=== PATIENT | female | born 1945 | race Caucasian/White ===

== ENCOUNTER 2019-08-16 08:10 | Day surgery (SDC) | payer MEDICARE, BC, SELFPAY ==
[2019-08-15 13:18] VITALS: BMI 45.0
[2019-08-16 08:33] VITALS: BP 183/99; PULSE 85; RESP 16; TEMP 36.4; O2SAT 95
[2019-08-16 08:42] LABS: Glucose Point of Care 142 mg/dL (70-110)
[2019-08-16] MEDS: sodium chloride 0.9% 1,000 ML 30 ML IV (08:44)
--- NOTE | 2019-08-16 08:50 | ANES.PREANE2 ---
Pre-Anesthetic Assessment Pre-Anesthetic Assessment: Height/Weight: Height 1.68 m Weight 126.552 kg Temp Pulse Resp BP Pulse Ox 97.5 F L 85 16 183/99 95 08/16/19 08:33 08/16/19 08:33 08/16/19 08:33 08/16/19 08:33 08/16/19 08:33 Proposed Procedure: Operation Date: 08/16/19 09:50 Proposed Procedures p Ventral Hernia Repair w/ poss Mesh(Not Applicable) - Amador Canas MD Last intake: Intake Last Liquid Date 08/16/19 Last Liquid Time 04:00 Last Solid Date 08/15/19 Last Solid Time 21:30 Social: Social History: Alcohol (occ) and No tobacco Exam: Pre-Anes Outpt Exam: alert, oriented x 3, clear to auscultation bilaterally and regular rate & rhythm Airway: Submandibular: WNL Cervical ROM: WNL MP: 2 Dentition: Other (good dentation) History/ROS: No significant history except as noted Pulmonary: Pulmonary: [facility] CV/HEM: CV/HEM: CAD (PTCA 2014) and HTN : : None reported Hepatic: Hepatic: None reported GI: GI: None reported Metabolic: Metabolic: DM, Morbid obesity and Thyroid Musc/skel: Musc/skel: OA/DJD Neuropsych: Neuropsych: None reported Anesthetic Plan: ASA status: 3 Anesthesia: Anesthesia Evaluation and General Risk of > 500 ml blood loss (7ml/kg in children): No Meds/Allergies Current Medications: Current Medications Generic Name Dose Route Start Last Admin Trade Name Freq PRN Reason Stop Dose Admin Sodium Chloride 1,000 mls @ 30 ml s/hr 08/16/19 08:00 08/16/19 08:44 Sodium Chloride 0.9% IV 08/17/19 07:59 30 mls/hr .Q24H SMITH Administration PFSH Anesthesia PFSH: Medical History CAD (coronary artery disease) Diabetes HTN (hypertension) Hypercholesteremia Myocardial infarct, old Obesity Osteoarthritis Surgical History Hx of cataract surgery Hx of dilation and curettage Hx of heart artery stent Hx of tonsillectomy Hx of total knee arthroplasty S/P PTCA (percutaneous transluminal coronary angioplasty) Family History Father CAD (coronary artery disease) Myocardial infarction Mother Diabetes Social History Smoking and tobacco status: never smoked Alcohol intake: current Alcohol intake frequency: holidays/special occasions only Data Anesthesia Other Labs: Laboratory Results - last 48 hr 08/16/19 08:37 POC Glucose 142 Cardiac Studies: No Data to Display
--- NOTE | 2019-08-16 09:35 | W.PM.OPSUD ---
Surgery/Procedure H&P Update DATE OF PROCEDURE: August 16, 2019 DATE H&P PERFORMED: 07/17/19 H&P UPDATE INFORMATION: I have examined patient prior to procedure and No changes to prior documentation PLANNED PROCEDURE: Operation Date: 08/16/19 09:50 Proposed Procedures p Ventral Hernia Repair w/ poss Mesh(Not Applicable) - Amador Canas MD
[2019-08-16] MEDS: clindamycin 900 MG/50 ML PREMIX 100 MG IV (09:40)
--- NOTE | 2019-08-16 09:41 | SUR.PREOP ---
[address] loving regarding unable to put TC hose on pt due to pt legs extremely large and swollen,oked with dr loving to hold off on TC hose
[2019-08-16 10:19] VITALS: BP 145/68; PULSE 83; RESP 16; TEMP 36.3; O2SAT 93
--- NOTE | 2019-08-16 10:19 | P.OP_ITS ---
Operative Report Date of procedure: August 16, 2019 Pre-op Diagnosis: Ventral hernia. Post-op diagnosis: same Procedure Done: Repair of ventral hernia. Pathology: none sent Surgeon: Amador Canas Anesthesia: General Estimated blood loss (mL): 5 Complications: None. Condition: stable Disposition: PACU Procedure: The patient was brought to the operating room and was placed in a supine position on the operating room table. General endotracheal anesthesia was induced. The abdomen was prepped and draped in a sterile fashion. A combination of 1% lidocaine with 1 to 100,000 parts epinephrine and 0.5% b upivacaine was used for local anesthesia throughout the procedure for postoperative anesthesia/pain control. A transverse incision was carried out over the hernia in the mid epigastrium. Cautery was used to divide the subcutaneous tissue and the hernia sac was identified and was freed on all sides down to the fascial defect which measured about 3 cm in diameter. The hernia sac was kept intact and was reduced. The patient seemed to have good tissue surrounding the defect and she had plenty of lax tissue allowing for a tension-free repair. For this reason, the fascia was brought back together at the defect transversely using multiple interrupted sutures of 0 Prolene in Lembert fashion. The repair was buttressed with some [id number] sutures of 0 Vicryl in between the Prolene sutures. The wound was irrigated with saline. The subcutaneous tissue was brought together with some interrupted sutures of 3-0 Vicryl and the skin was approximated using a running subcuticular suture of 3-0 Vicryl. Benzoin and Steri-Strips were placed over the incision and a sterile bandage followed. The patient was taken to the recovery area in stable condition postoperatively.
[2019-08-16 10:25] VITALS: BP 131/78; PULSE 80; RESP 19; O2SAT 96
[2019-08-16 10:30] VITALS: BP 133/77; PULSE 71; RESP 12; TEMP 36.5; O2SAT 95
[2019-08-16 10:40] VITALS: BP 129/76; PULSE 75; RESP 16; TEMP 36.6; O2SAT 94
[2019-08-16 10:55] VITALS: BP 131/74; PULSE 72; RESP 16; TEMP 36.6; O2SAT 95
--- NOTE | 2019-08-16 11:02 | SUR.PHASEII ---
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
== END 2019-08-16 12:45 | disposition home or self-care (01) ==
PROVIDERS: Family Provider Family Medicine; PCP Family Medicine; Visit Provider Surgery
PROC: 0WQF0ZZ Repair Abdominal Wall, Open Approach (ICD-10-PCS; CPT 49560; principal; 2019-08-16 09:50)
DX: K43.9 Ventral hernia without obstruction or gangrene (principal); F32.9 Major depressive disorder, single episode, unspecified; M19.90 Unspecified osteoarthritis, unspecified site; E11.9 Type 2 diabetes mellitus without complications; I10 Essential (primary) hypertension; I25.10 Atherosclerotic heart disease of native coronary artery without angina pectoris; I25.2 Old myocardial infarction; Z79.82 Long term (current) use of aspirin; Z79.84 Long term (current) use of oral hypoglycemic drugs; E66.01 Morbid (severe) obesity due to excess calories; Z68.42 Body mass index [BMI] 45.0-49.9, adult; E78.00 Pure hypercholesterolemia, unspecified
CPT/HCPCS: 49560; 12345; 36416; 82962; J0330; J2001; J2405; J2704; J3010; J3490; J7030

== ENCOUNTER 2019-12-01 12:40 | Inpatient (IN) | payer MEDICARE, BC, SELFPAY ==
[2019-12-01] VITALS (123 sets, daily range): BP systolic 62–205; BP diastolic 46–148; PULSE 48–141; RESP 12–24; TEMP 36.4–36.9; O2SAT 82–100; BMI 46.0
--- NOTE | 2019-12-01 12:53 | XRR_ITS ---
PROCEDURE INFORMATION: Exam: XR Chest, 1 View Exam date and time: 12/01/2019 12:55 PM Age: 74 years old Clinical indication: Dyspnea TECHNIQUE: Imaging protocol: XR of the chest Views: 1 view. COMPARISON: No relevant prior studies available. FINDINGS: Lungs: Fluffy bilateral lung opacities Pleural space: Unremarkable. No pleural effusion. No pneumothorax. Heart/Mediastinum: The heart is enlarged. The pulmonary venous structures are prominent and indistinct. There is interstitial prominence. Findings are consistent with congestive heart failure. Bones/joints: Unremarkable. XR/XR chest 1V portable [id number] IMPRESSION: 1. Findings as stated above are consistent with congestive heart failure. 2. Fluffy bilateral lung opacities are nonspecific and may represent pulmonary edema in this patient. Pneumonia cannot be excluded.
--- NOTE | 2019-12-01 12:54 | ECG_ITS ---
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 Measurements Intervals [place] Rate: 139 P: 39 NM: 181 QRS: 11 QRSD: 92 T: 68 QT: 341 QTc: 520 Interpretive Statements SINUS TACHYCARDIA WITH FREQUENT VENTRICULAR PREMATURE COMPLEXES INFERIOR MYOCARDIAL INFARCTION , OF INDETERMINATE AGE No previous ECG available for comparison Electronically Signed On 12-02-2019 9:17:06 CDT by Claudia Hudson M.D. [email or web address] [email or web address] Health Managementwayne [email or web address].[email or web address]/NU/[id number] f
--- NOTE | 2019-12-01 13:00 | USCV_ITS ---
Jose Carreno Age: 74 Gender: F : 1945 Exam Date: 12/01/2019 15:07 Ordering Phys: Edgar Gudino DO Technologist: Jennifer Saldana [place] [facility] [place]: Respiratory distress BP: 169 / 90 HR: 111 Rhythm: Sinus tachycardia Technical Quality: Very technically difficult study MEASUREMENTS (Male / Female) Normal Values 2D ECHO LV Diastolic Diameter PLAX 3.7 cm 4.2 - 5.9 / 3.9 - 5.3 cm LV Systolic Diameter PLAX 3.0 cm LV Chamber Size 5.6 cm IVS Diastolic Thickness 1.9 cm 0.6 - 1.0 / 0.6 - 0.9 cm IVS Systolic Thickness 1.7 cm LVPW Diastolic Thickness 1.3 cm 0.6 - 1.0 / 0.6 - 0.9 cm LVPW Systolic Thickness 1.8 cm RV Chamber Size 1.8 cm LVOT Diameter 1.9 cm LV Ejection Fraction 2D Teich 37.4 % LA Diameter 5.3 cm LA Width 2.7 cm LA Height 4.8 cm RA Width 2.0 cm RA Height 4.0 cm Aorta at Sinotubular Diameter 2.4 cm M-MODE LV Diastolic Diameter MM 6.2 cm 4.2 - 5.9 / 3.9 - 5.3 cm LV Systolic Diameter MM 5.0 cm LV Ejection Fraction MM Teich 37.0 % IVS Diastolic Thickness MM 1.3 cm 0.6 - 1.0 / 0.6 - 0.9 cm IVS Systolic Thickness MM 1.4 cm LVPW Diastolic Thickness MM 1.4 cm 0.6 - 1.0 / 0.6 - 0.9 cm LVPW Systolic Thickness MM 1.5 cm RV Diastolic Diameter MM 3.0 cm Aortic Annulus Diameter 3.2 cm LA Ao Ratio MM 1.7 DOPPLER AV Peak Velocity 115.0 cm/s LVOT Peak Velocity 99.0 cm/s AV Area Cont Eq vti 1.9 cm squared AV Area Cont Eq pk 2.4 cm squared MV Area PHT 5.4 cm squared Mitral E to A Ratio 0.9 MV E' Velocity 63.0 cm/s TV Peak E Velocity 92.0 cm/s Right Atrial Pressure 15.0 mmHg FINDINGS Left Ventricle Moderately dilated left ventricle. Severely decreased left ventricular systolic function.left ventricular ejection fraction is estimated at 25-30 %. Severely global hypokinesis. Although no diagnostic regional wall motion abnormality could be identified, this possibility cannot be completely excluded based on this study. Right Ventricle Right ventricle not well visualized. Probably normal right ventrciular size and low normal systolic function. Right Atrium Right atrium not well visualized. Left Atrium Mildly increased left atrial size. Mitral Valve Mildly thickened mitral valve. No mitral valve stenosis. Trace mitral valve regurgitation. Aortic Valve Aortic valve not well visualized. No aortic valve stenosis. Mild aortic valve regurgitation. Tricuspid Valve Tricuspid valve not well visualized. Pulmonic Valve Pulmonic valve not well visualized. Pericardium No pericardial effusion. Dilated inferior vena cava with no respiratory variations. Aorta Aorta not well visualized. CONCLUSIONS 1. This is a technically very difficult study. 2. Moderately dilated left ventricle. Severely decreased left ventricular systolic function.left ventricular ejection fraction is estimated at 25-30 %. Severely global hypokinesis. 3. Probably normal right ventrciular size and low normal systolic function. 4. Mild aortic valve regurgitation. 5. No prior similar studies to compare. Claudia Hudson MD (Electronically Signed) Final Date: 01 December 2019 17:32 S
[2019-12-01] MEDS: FUROsemide 10 mg/mL SDV 10mL 60 MG IVP (13:04)
[2019-12-01] MEDS: morphine 4 mg/mL SDV 1 mL IVP (13:05)
[2019-12-01 13:16] LABS: Basophils # 0.1 10^3/uL (0.0-0.1); Basophils % 0.9 %; Eosinophils # 0.5 10^3/uL (0.0-0.8); Eosinophils % 3.5 %; Hematocrit 44.1 % (37.0-47.0); Hemoglobin 13.1 g/dL (11.5-15.3); Lymphocytes # 4.5 10^3/uL (0.8-4.8); Lymphocytes % 32.4 %; Mean Corpuscular HGB Conc 29.7 g/dL (30.0-36.0); Mean Corpuscular Hemoglobin 24.4 pg (28.0-34.0); Mean Corpuscular Volume 82.1 fL (81-99); Mean Platelet Volume 12.6 fL (7.4-10.4); Monocytes # 0.7 10^3/uL (0.2-0.9); Monocytes % 5.2 %; Neutrophils # 7.97 10^3/uL (1.8-7.7); Neutrophils % 57.4 %; Nucleated Red Blood Cells % 0 %; Platelet Count 286 10^3/cmm (130-400); Red Blood Count 5.37 10^6/uL (4.1-5.3); Red Cell Distribution Width 16.2 % (12.1-15.1); White Blood Count 13.9 10^3/uL (4.0-10.0)
[2019-12-01] MEDS: nitroglycerin drip 50 MG/250 ML PREMIX IV (13:20)
--- NOTE | 2019-12-01 13:31 | ED_ITS ---
HPI - SOB/Dyspnea General: Chief Complaint: Shortness of Breath/Dyspnea Stated Complaint: SHORT OF BREATH Time Seen by Provider: 12/01/19 12:42 History of Present Illness: HPI Narrative: 74-year-old female presents to the emergency room in acute respiratory distress I was called to the bedside as the patient was having short runs of V. tach. On arrival evaluated patient she was in acute respiratory distress. Patient was given 150 mg of amiodarone and star vito on amiodarone drip. Very brief history from the patient she suddenly began this at 1030 this morning with progressive worsening difficulty breathing with chest congestion she is not had any fever study nausea vomiting or diarrhea. She is not had any GI blood loss. She denied any chest pain that she could recall. She not been around anyone who is known to be positive for COVID or suspected. Patient does have a history of diabetes mellitus and known history of coronary artery disease MD elicited complaint: shortness of breath Pertinent past history: congestive heart failure and other (Coronary artery disease) Onset (ago): hour(s) Timing: progressively worsening Severity: severe Exacerbating factors: lying flat, exertion and coughing Relieving factors: oxygen, rest and upright position Known history of: congestive heart failure and other (Coronary artery disease) Associated symptoms: Reports cough; Deny fever(s), hemoptysis, palpitations, syncope or vomiting Treatment prior to arrival: none Review of Systems Const: Denies: fever(s) ENMT: Denies: throat pain, nasal discharge or nasal congestion Card: Denies: palpitations or syncope Resp: Denies: hemoptysis GI: Denies: vomiting : Denies: difficulty voiding, dysuria, urinary frequency or urinary urgency [facility] ED PFSH: Medical History CAD (coronary artery disease) Diabetes HTN (hypertension) Hypercholesteremia Myocardial infarct, old Obesity Osteoarthritis Surgical History Hx of cataract surgery Hx of dilation and curettage Hx of heart artery stent Hx of tonsillectomy Hx of total knee arthroplasty S/P PTCA (percutaneous transluminal coronary angioplasty) Family History Father CAD (coronary artery disease) Myocardial infarction Mother Diabetes Social History Smoking and tobacco status: never smoked Alcohol intake: current Alcohol intake frequency: holidays/special occasions only Physical Exam Const: ORIENTATION/CONSCIOUSNESS: Yes awake HENMT: COMMON NORMALS: normocephalic, atraumatic and hearing grossly normal bilaterally HEAD & SCALP: normocephalic and atraumatic Eye: COMMON NORMALS: Equal, round and reactive pupils present, EOMs intact bilaterally, conjunctivae normal and no scleral icterus CONJUNCTIVA: Yes conjunctivae normal PUPIL: Yes Equal, round and reactive pupils present Resp: AUSCULTATION: rales, rhonchi and diminished lung sounds Cardio: RATE: tachycardic RHYTHM: abnormal rhythm (Short runs of V. tach) GI: COMMON NORMALS: Soft to palpation and No hepatosplenomegaly present AUSCULTATION: Yes normoactive bowel sounds PALPATION: Yes Soft to palpation, No Tenderness to palpation present (GI), No Guarding due to palpation present (GI) and Yes No hepatosplenomegaly present Extremity: OTHER: 1+ edema lower extremities Procedures Intubation Time out performed: Yes sedative: Etomidate Mg Given: 30 Mg Given: 90 ET Tube Size: 8 ET Tube Uncuffed: No Tube Secured Depth (cm): 23 Tube Secured Location: teeth Tube Placement Confirmation: visualized tube passing through cords, equal breath sounds bilaterally and no breath sounds over epigastrium Patient Tolerated Procedure: well Intubation Complications: none Additional Comments: Confirmed by x-ray as well Course Vital Signs: Vital signs: Vital Signs Temperature 97.5 F L 12/01/19 12:48 Pulse Rate 113 H 12/01/19 15:09 Respiratory Rate 18 12/01/19 15:09 Blood Pressure 169/90 12/01/19 15:09 Pulse Oximetry 97 12/01/19 15:09 MDM - SOB/Dyspnea MDM Narrative: Medical decision making narrative: Discussed with Dr. Marion will admit to the ICU she would like to the patient PCR tested even though the antigen test was negative will maintain code precautions. PCR testing has been ordered. Second blood gas showed improvement did make some adjustments to the ventilator. Postresuscitation patient was struggling with propofol we gave her some ketamine after that her blood pressure and heart rate decreased tolerated for a time and then gave her atropine she had very little improvement of her heart rate dopamine was started but this time the amiodarone and nitroglycerin at all been stopped as well as her propofol. Patient was given 2 half amps dose drinks of atropine which improved heart rate only minimal dopamine was started at 10 mics per kilogram patient had significant response was titrated back down to 3 was notable that the patient began having irritability and short little V. tach beats her amiodarone was restarted she is stable at this time Dr. hernández is in the department to see her. Lab Data: Labs: Lab Results 12/01/19 12/01/19 12/01/19 Range/Units 12:50 13:04 13:05 WBC 13.9 H (4.0-10.0) 10^3/ uL RBC 5.37 H (4.1-5.3) 10^6/u L Hgb 13.1 (11.5-15.3) g/dL Hct 44.1 (37.0-47.0) % MCV 82.1 (81-99) fL MCH 24.4 L (28.0-34.0) pg MCHC 29.7 L (30.0-36.0) g/dL RDW 16.2 H (12.1-15.1) % Plt Count 286 (130-400) 10^3/c mm MPV 12.6 H (7.4-10.4) fL Neut % (Auto) 57.4 % Lymph % (Auto) 32.4 % [place] % (Auto) 5.2 % Eos % (Auto) 3.5 % Baso % (Auto) 0.9 % Neut # (Auto) 7.97 H (1.8-7.7) 10^3/u L Lymph # (Auto) 4.5 (0.8-4.8) 10^3/u L [place] # (Auto) 0.7 (0.2-0.9) 10^3/u L Eos # (Auto) 0.5 (0.0-0.8) 10^3/u L Baso # (Auto) 0.1 (0.0-0.1) 10^3/u L Nucleated RBC % (a uto) 0 % Nucleated RBCs # 0.0 /100WBC Specimen Type Arterial Sample Site Radial, right ABG pH 7.19 L (7.35-7.45) ABG pCO2 60.0 H (35-45) mmHg ABG pO2 84.2 (80.0-100.0) mmH g ABG HCO3 22.8 (22-26) mmol/L ABG Base Excess -6.4 L (-2.0-2.0) mmol/ L Derrick Test Pos Hematocrit 43.3 (37-47) % O2 Delivery Device Nrb O2 Liters/Min 15.0 % FiO2 100.0 % Tidal Volume PEEP cmH20 Dance [employer] Hostess ID glc Blood Gas Notified Time Sodium (136-145) mmol/L Potassium (3.5-5.1) mmol/L Chloride (98-107) mmol/L Carbon Dioxide (22-29) mmol/L Anion Gap (5-19) BUN (8-23) mg/dL Creatinine (0.5-0.9) mg/dL GFR Calculation Glucose (65-115) mg/dL POC Glucose 257 (70-110) mg/dL Calculated Osmolal ity (285-295) mOsm/k g Calcium (8.5-10.5) mg/dL Total Bilirubin (0.15-1.2) mg/dL AST (0-32) U/L ALT (0-33) U/L Alkaline Phosphata se (35-105) IU/L Creatine Kinase (26-192) U/L Troponin T Baselin e (0-10) ng/L NT-Pro-B Natriuret Pep (0-125) pg/mL Total Protein (6.6-8.7) g/dL Albumin (3.5-5.2) g/dL Globulin (1.3-4.6) g/dL Influenza Type A A g (Negative) Influenza Type B A g (Negative) SARS-CoV-2 Ag (Rap id) (Negative) 12/01/19 12/01/19 12/01/19 Range/Units 13:05 13:05 13:47 WBC (4.0-10.0) 10^3/ uL RBC (4.1-5.3) 10^6/u L Hgb (11.5-15.3) g/dL Hct (37.0-47.0) % MCV (81-99) fL MCH (28.0-34.0) pg MCHC (30.0-36.0) g/dL RDW (12.1-15.1) % Plt Count (130-400) 10^3/c mm MPV (7.4-10.4) fL Neut % (Auto) % Lymph % (Auto) % [place] % (Auto) % Eos % (Auto) % Baso % (Auto) % Neut # (Auto) (1.8-7.7) 10^3/u L Lymph # (Auto) (0.8-4.8) 10^3/u L [place] # (Auto) (0.2-0.9) 10^3/u L Eos # (Auto) (0.0-0.8) 10^3/u L Baso # (Auto) (0.0-0.1) 10^3/u L Nucleated RBC % (a uto) % Nucleated RBCs # /100WBC Specimen Type Sample Site ABG pH (7.35-7.45) ABG pCO2 (35-45) mmHg ABG pO2 (80.0-100.0) mmH g ABG HCO3 (22-26) mmol/L ABG Base Excess (-2.0-2.0) mmol/ L Derrick Test Hematocrit (37-47) % O2 Delivery Device O2 Liters/Min % FiO2 % Tidal Volume PEEP cmH20 Dance Hall Hostess ID Blood Gas Notified Time Sodium 142 (136-145) mmol/L Potassium 5.0 (3.5-5.1) mmol/L Chloride 105 (98-107) mmol/L Carbon Dioxide 22 (22-29) mmol/L Anion Gap 20.0 H (5-19) BUN 21 (8-23) mg/dL Creatinine 1.4 H (0.5-0.9) mg/dL GFR Calculation Not Reportable Glucose 289 H (65-115) mg/dL POC Glucose (70-110) mg/dL Calculated Osmolal ity 301 H (285-295) mOsm/k g Calcium 9.5 (8.5-10.5) mg/dL Total Bilirubin 0.3 (0.15-1.2) mg/dL AST 41 H (0-32) U/L ALT 36 H (0-33) U/L Alkaline Phosphata se 99 (35-105) IU/L Creatine Kinase 94 (26-192) U/L Troponin T Baselin e 32 H (0-10) ng/L NT-Pro-B Natriuret Pep 1992 H (0-125) pg/mL Total Protein 6.9 (6.6-8.7) g/dL Albumin 4.2 (3.5-5.2) g/dL Globulin 2.7 (1.3-4.6) g/dL Influenza Type A A g (Negative) Influenza Type B A g (Negative) SARS-CoV-2 Ag (Rap id) Negative (Negative) 12/01/19 12/01/19 Range/Units 13:55 14:08 WBC (4.0-10.0) 10^3/ uL RBC (4.1-5.3) 10^6/u L Hgb (11.5-15.3) g/dL Hct (37.0-47.0) % MCV (81-99) fL MCH (28.0-34.0) pg MCHC (30.0-36.0) g/dL RDW (12.1-15.1) % Plt Count (130-400) 10^3/c mm MPV (7.4-10.4) fL Neut % (Auto) % Lymph % (Auto) % [place] % (Auto) % Eos % (Auto) % Baso % (Auto) % Neut # (Auto) (1.8-7.7) 10^3/u L Lymph # (Auto) (0.8-4.8) 10^3/u L [place] # (Auto) (0.2-0.9) 10^3/u L Eos # (Auto) (0.0-0.8) 10^3/u L Baso # (Auto) (0.0-0.1) 10^3/u L Nucleated RBC % (a uto) % Nucleated RBCs # /100WBC Specimen Type Arterial Sample Site Radial, left ABG pH 7.28 L (7.35-7.45) ABG pCO2 46.9 H (35-45) mmHg ABG pO2 246.0 H (80.0-100.0) mmH g ABG HCO3 22.2 (22-26) mmol/L ABG Base Excess -4.6 L (-2.0-2.0) mmol/ L Derrick Test Pos Hematocrit 39.6 (37-47) % O2 Delivery Device Vent O2 Liters/Min % FiO2 90.0 % Tidal Volume 0.54 PEEP 7.0 cmH20 Dance Hall Hostess ID glc Blood Gas Notified Time 1408 Sodium (136-145) mmol/L Potassium (3.5-5.1) mmol/L Chloride (98-107) mmol/L Carbon Dioxide (22-29) mmol/L Anion Gap (5-19) BUN (8-23) mg/dL Creatinine (0.5-0.9) mg/dL GFR Calculation Glucose (65-115) mg/dL POC Glucose (70-110) mg/dL Calculated Osmolal ity (285-295) mOsm/k g Calcium (8.5-10.5) mg/dL Total Bilirubin (0.15-1.2) mg/dL AST (0-32) U/L ALT (0-33) U/L Alkaline Phosphata se (35-105) IU/L Creatine Kinase (26-192) U/L Troponin T Baselin e (0-10) ng/L NT-Pro-B Natriuret Pep (0-125) pg/mL Total Protein (6.6-8.7) g/dL Albumin (3.5-5.2) g/dL Globulin (1.3-4.6) g/dL Influenza Type A A g Negative (Negative) Influenza Type B A g Negative (Negative) SARS-CoV-2 Ag (Rap id) (Negative) Critical Care Time Critical Care Time: Critical Care Time: Yes Total Critical Care Time: 90 Attestation: This case had a high probability of a clinically significant, sudden, or life threatening deterioration of this patient's condition which required my full and direct attention, intervention and personal management. Discharge Plan Discharge Admit Provider: Alice Marion Clinical Impression: Congestive heart failure, Ventricular tachycardia, Acute respiratory failure Condition: Stable Coding Level of Care Code ED Athletic Trainer for Krystal Humphries
[2019-12-01] MEDS: propofol 1,000 MG/100 ML INJ 7.8 MG IV (13:39)
[2019-12-01 13:41] LABS: Troponin(5th) Baseline 32 ng/L (0-10)
--- NOTE | 2019-12-01 13:42 | XRR_ITS ---
PROCEDURE INFORMATION: Exam: XR Chest, 1 View Exam date and time: 12/01/2019 1:50 PM Age: 74 years old Clinical indication: Device placement; Ett placement (vent status); Additional info: Post-intubation TECHNIQUE: Imaging protocol: XR of the chest Views: 1 view. COMPARISON: CR (CHEST, ) 12/01/2019 12:51 PM FINDINGS: Tubes, catheters and devices: ET tube tip is positioned 3.1 cm superior to the paulino. There is a G-tube in place with the distal tip not visualized. Lungs: Bilateral fluffy pulmonary opacities are similar to the prior study. Pleural space: Left costophrenic angle is not well seen and a small pleural effusion cannot be excluded. Heart/Mediastinum: The heart is enlarged. The pulmonary venous structures are prominent and indistinct. There is interstitial prominence. Findings are consistent with congestive heart failure. Bones/joints: Unremarkable. XR/XR chest 1V portable [id number] IMPRESSION: 1. ET tube tip is positioned 3.1 cm superior to the paulino. 2. Bilateral fluffy pulmonary opacities are similar to the prior study. Differential includes pulmonary edema and pneumonia. 3. There are findings consistent with CHF, similar to the prior study.
[2019-12-01 13:46] LABS: Alanine Aminotransferase 36 U/L (0-33); Albumin Level 4.2 g/dL (3.5-5.2); Alkaline Phosphatase 99 IU/L (35-105); Blood Urea Nitrogen 21 mg/dL (8-23); Calcium 9.5 mg/dL (8.5-10.5); Carbon Dioxide 22 mmol/L (22-29); Chloride 105 mmol/L (98-107); Creatine Phosphokinase 94 U/L (26-192); Globulin 2.7 g/dL (1.3-4.6); Glucose 289 mg/dL (65-115); NT Pro B Type Natriuretic Pept 1992 pg/mL (0-125); Osmolality Calculated 301 mOsm/kg (285-295); Sodium 142 mmol/L (136-145); Total Bilirubin 0.3 mg/dL (0.15-1.2); Total Protein 6.9 g/dL (6.6-8.7)
[2019-12-01 13:48] LABS: Aspartate Amino Transferase 41 U/L (0-32)
[2019-12-01 14:00] LABS: Arterial Blood Gas Hematocrit 43.3 % (37-47); Base Excess ABG -6.4 mmol/L (-2.0-2.0); Blood Gas Allen Test Pos; Blood Gas Operator Identificat glc; Blood Gas Sample Site Radial, right; Blood Gas Sample Type Arterial; HCO3 ABG 22.8 mmol/L (22-26); Oxygen Device NRB; PO2 ABG 84.2 mmHg (80.0-100.0)
[2019-12-01 14:07] LABS: ABG PCO2 46.9 mmHg (35-45); ABG PH Result 7.28 (7.35-7.45); Arterial Blood Gas Hematocrit 39.6 % (37-47); Base Excess ABG -4.6 mmol/L (-2.0-2.0); Blood Gas Allen Test Pos; Blood Gas Operator Identificat glc; Blood Gas Sample Site Radial, left; Blood Gas Sample Type Arterial; Blood Gas Tidal Volume 0.54; HCO3 ABG 22.2 mmol/L (22-26); Oxygen Device VENT
[2019-12-01 14:08] LABS: ABG PH Result 7.19 (7.35-7.45)
[2019-12-01 14:09] LABS: Blood Gas CCRB Time 1408
[2019-12-01] MEDS: succinylcholine 20 mg/mL SDV 10mL 100 MG IVP (14:21)
[2019-12-01 14:43] LABS: SARS Covid-2 Antigen Negative (Negative)
[2019-12-01] MEDS: DOPamine drip 400 MG/250 ML PREMIX 48.5 MG IV (14:50)
[2019-12-01] MEDS: atropine 0.1 mg/mL Syr 10 mL 1 MG IVP (14:50)
--- NOTE | 2019-12-01 14:54 | ECG_ITS ---
[facility] Test Date: 2019-12-01 Pat Name: Jose Carreno Department: Room: Gender: Female Business Support: : 1945 Requested By: Edgar Stinson Order Number: [id number] Liliana MD: Claudia Hudson M.D. Measurements Intervals [place] Rate: 57 P: 34 [place]: 196 QRS: 4 QRSD: 104 T: 96 QT: 451 QTc: 441 Interpretive Statements SINUS BRADYCARDIA POSSIBLE LEFT ATRIAL ENLARGEMENT [-0.1mV P WAVE IN V1/V2] INCOMPLETE RIGHT BUNDLE BRANCH BLOCK INFERIOR MYOCARDIAL INFARCTION , PROBABLY OLD No previous ECG available for comparison Electronically Signed On 12-02-2019 9:10:01 CDT by Claudia Hudson M.D. [id number]
[2019-12-01 15:01] LABS: Glucose Point of Care 257 mg/dL (70-110)
[2019-12-01 15:07] LABS: Influenza A by IFA Negative (Negative); Influenza B by IFA Negative (Negative)
--- NOTE | 2019-12-01 16:11 | PM.HP ---
Providers/Chief Complaint Admitting Physician: Alice Marion MD Primary Care Provider: Hiren Ferreira Jr, MD Chief Complaint: SHORT OF BREATH History of Present Illness Jose Carreno is a 74 year old female with a past medical history of CAD status post stenting 6 to 7 years ago in [place], unknown last EF, diabetes mellitus, hypertension, CHF with chronic lower extremity swelling who presented to the ER today in respiratory distress. All of the history is obtained by talking to her daughter as patient is unable to communicate. It appears this morning patient was walking around in her pool and cleaning it when she developed sudden onset shortness of breath. Patient was able to call her and complained of the same shortness of breath and then he ended concrete pouring supervisor the EMS. Patient was able to walk 30 feet to the EMS truck however her O2 sats at the time was noted to be 92% and she was somewhat tachypneic. Upon presentation to the ER she was noted to have elevated blood pressure so she was started on nitroglycerin infusion initially. EKG also showed intermittent V. fib for which amiodarone was given. She then developed sinus bradycardia. Atropine was administered. Quickly worsening respiratory distress patient was emergently intubated eventually. She became hypotensive and has since been started on dobutamine infusion. Baseline troponin is at 32. CPK baseline is not elevated. D-dimer remains pending at this time. COVID rapid antigen is negative. 1 of the patient's daughter was recently was having respiratory symptoms shortly after losing her xerlef-uw-cdu to COVID. However apparently patient has not been around the said daughter for the past month. She had virtually no symptoms of cough chest pain URI symptoms sore throat prior to onset of symptoms today. Review of Systems General: Reports: ROS unobtainable due to endotracheal tube and ROS unobtainable due to medical condition Medications/Allergies Home Medications Medication Instructions Recorded Confirmed Last Taken Type aspirin 325 mg tablet,delayed 325 mg PO DAILY tab 05/01/19 12/01/19 12/01/19 History release carvedilol 3.125 mg tablet 3.125 mg PO BID 05/01/19 12/01/19 12/01/19 History cholecalciferol (vitamin D3) 25 2,000 unit PO DAILY cap 05/01/19 12/01/19 12/01/19 History mcg (1,000 unit) capsule furosemide 40 mg tablet 40 mg PO BID 05/01/19 12/01/19 12/01/19 History levothyroxine 75 mcg tablet 75 mcg PO DAILY tab 05/01/19 12/01/19 12/01/19 History losartan 50 mg tablet 50 mg PO DAILY tab 05/01/19 12/01/19 12/01/19 History metformin 500 mg tablet 500 mg PO BID 05/01/19 12/01/19 12/01/19 History potassium chloride 20 mEq 10 meq PO BID 05/01/19 12/01/19 12/01/19 History tablet,extended release(part/cryst) acetaminophen [Tylenol Extra 500 mg PO Q6H PRN 08/15/19 12/01/19 08/15/19 History Strength] hydrocodone-acetaminophen 1 - 2 tab PO Q5H PRN #30 tab 08/16/19 12/01/19 Unknown Rx simvastatin 10 mg PO BEDTIME 12/01/19 12/01/19 12/01/19 History Allergies Allergy/AdvReac Type Severity Reaction Status Date / Time cephalexin Allergy Mild Unknown Verified 08/16/19 08:28 PFSH Acute PFSH: Medical History CAD (coronary artery disease) Diabetes HTN (hypertension) Hypercholesteremia Myocardial infarct, old Obesity Osteoarthritis Surgical History Hx of cataract surgery Hx of dilation and curettage Hx of heart artery stent Hx of tonsillectomy Hx of total knee arthroplasty S/P PTCA (percutaneous transluminal coronary angioplasty) Family History Father CAD (coronary artery disease) Myocardial infarction Mother Diabetes Social History Smoking and tobacco status: never smoked Alcohol intake: current Alcohol intake frequency: holidays/special occasions only Vitals/I&O/Wt Last Vital Signs Temp 97.5 F L 12/01/19 12:48 Pulse 69 12/01/19 15:55 Resp 14 12/01/19 15:55 BP 124/77 12/01/19 15:55 Pulse Ox 98 12/01/19 16:00 12/01/19 12/01/19 12/01/19 06:59 14:59 22:59 Intake Total 0.09 / 0.09 133.042 / 133.132 Balance 0.09 / 0.09 133.042 / 133.132 Weight last 48 hrs Weight 129.274 kg Physical Exam Narrative: EXAM NARRATIVE: GEN: Intubated sedated HEENT: ETT In place, minimal secretions CVS: S1S2 N RS: CTA B/L Abd: Soft, nt/nd , bs+ TOWEL DISTRIBUTOR: intubated, sedated EXT: B/L LE edema+ Urinary Catheter Management^: Arteaga: Cath Placed During This Visit: yes Urinary Catheter Date of Insertion: 12/01/19 Urinary Catheter Time of Insertion: 14:37 Data : 12/01/19 13:05 12/01/19 13:05 Micro: Microbiology 12/01/19 15:30 Blood Culture - Preliminary Blood SPECIMEN COLLECTED 12/01/19 15:25 Blood Culture - Preliminary Blood SPECIMEN COLLECTED 12/01/19 13:30 Gram Stain - Final Sputum - Endotracheal Tube Aspirate A&P Assessment and plan (1) Acute respiratory failure: Status: Acute Qualifiers: Respiratory failure complication: hypoxia Qualified Code(s): J96.01 - Acute respiratory failure with hypoxia (2) Ventricular tachycardia: Status: Acute (3) Congestive heart failure: Status: Acute Qualifiers: Heart failure type: combined systolic and diastolic Heart failure chronicity: acute on chronic Qualified Code(s): I50.43 - Acute on chronic combined systolic (congestive) and diastolic (congestive) heart failure (4) Cardiogenic shock: Status: Acute Additional A&P Information Admit to ICU in viw of shock, appears to be cardiogenic per history as above - EKG with Vfib/Vtach continue amiodarone infusion -Stop dopamine, start levophed instead - full does a/c with lovenox for possible MA vs PE - alternate differential incl PE, acute decompensated HF -D dimer, LE duplex, CTA chest - Stat echo ordered, pensing - Lasix 80mg iv q12h for CHF, Chandler vang , I/O - Dr. Hudson consulted from cardiology -COVID PCR , though negative Ag due to strong suspicion - Zosyn emprically while undergoing w/up , per history less likely to be pneumonia, will await CT images - Intubated in the ER, settings per RT for ventilator, OG tube - Fentanyl, propofol for sedation Full code DVT ppx: on full dose lovenox Attestations Medical Necessity Statement*: >2midnight for cardiogenic shock, acute respiratory failure ~45min spent in CCM time Critical Care Time: Critical Care Time (min): 60 Coding Level of Care Code Acute Kindergartners Helper for [facility] Fwd Diagnoses Acute respiratory failure J96.01 Respiratory failure complication: hypoxia Ventricular tachycardia I47.2 Congestive heart failure I50.43 Heart failure type: combined systolic and diastolic Heart failure chronicity: acute on chronic Cardiogenic shock R57.0
--- NOTE | 2019-12-01 16:39 | CTR_ITS ---
PROCEDURE INFORMATION: Exam: CT Angiography Chest With Contrast Exam date and time: 12/01/2019 5:24 PM Age: 74 years old Clinical indication: Shortness of breath; Patient HX: Sudden onset resp distress et-og and central lines in place; Additional info: Evaluate pe TECHNIQUE: Imaging protocol: Computed tomographic angiography of the chest with intravenous contrast. 3D rendering: MIP and/or 3D reconstructed images were created by the technologist. Radiation optimization: All CT scans at this facility use at least one of these dose optimization techniques: automated exposure control; mA and/or kV adjustment per patient size (includes targeted exams where dose is matched to clinical indication); or iterative reconstruction. Contrast material: VISI 320; Contrast volume: 95 ml; Contrast route: INTRAVENOUS (IV); COMPARISON: CR (CHEST, ) 12/01/2019 1:57 PM RADIATION DOSE METRICS: Total DLP (mGy-cm): 588.96 FINDINGS: Tubes, catheters and devices: There is a ET tube in place with the tip terminates superior to the paulino. A G-tube is in place with the distal tip in the stomach. Pulmonary arteries: Normal. No pulmonary emboli. Aorta: Unremarkable. No aortic aneurysm. No aortic dissection. Lungs: There are bilateral pulmonary ground-glass opacities. Pleural space: There are bilateral pleural effusions with underlying compressive atelectasis or infiltrate. Heart: Cardiomegaly. There is trace pericardial fluid. Lymph nodes: Unremarkable. No enlarged lymph nodes. Gallbladder and bile ducts: Cholelithiasis. Bones/joints: There are degenerative changes in the spine. Soft tissues: Unremarkable. CT/CT angio chest PE protcl [id number] IMPRESSION: 1. Cardiomegaly with bilateral pleural effusions consistent with congestive heart failure. 2. Bilateral pulmonary ground-glass opacities likely represent pulmonary edema in this patient. Underlying pneumonia cannot be excluded. 3. No evidence for pulmonary embolus. Radiation Dose CTDIVOL = (mGy): DLP = 588.96 (mGy-cm)
[2019-12-01] MEDS: enoxaparin 100 mg/mL Syringe SUBCUT (16:57)
[2019-12-01] MEDS: piperacillin-tazobactam 3.375 GM in sodium chloride 0.9% (plus) 50 ML IV (16:58)
[2019-12-01] MEDS: enoxaparin 30 mg/0.3 mL Syringe SUBCUT (16:58)
[2019-12-01 18:01] LABS: ABG PCO2 42.1 mmHg (35-45); ABG PH Result 7.36 (7.35-7.45); Arterial Blood Gas Hematocrit 43.4 % (37-47); Base Excess ABG -1.7 mmol/L (-2.0-2.0); Blood Gas Allen Test Pos; Blood Gas Operator Identificat glc; Blood Gas Sample Site Radial, right; Blood Gas Sample Type Arterial; Blood Gas Tidal Volume 0.56; HCO3 ABG 23.8 mmol/L (22-26); Oxygen Device VENT
[2019-12-01] MEDS: haloperidol inj 5 mg/mL INJ 1 mL IVP (18:19)
[2019-12-01] MEDS: FUROsemide 10 mg/mL SDV 10mL 80 MG IVP (18:19)
[2019-12-01] MEDS: metoclopramide 5 mg/mL SDV 2 mL 10 MG IVP (18:20)
--- NOTE | 2019-12-01 18:54 | ECG_ITS ---
[facility] Test Date: 2019-12-01 Pat Name: Jose Carreno Department: Room: ICU02 Gender: Female Fly Finisher: : 1945 Requested By: Edgar Stinson Order Number: [id number] Liliana MD: Claudia Hudson M.D. Measurements Intervals [place] Rate: 70 P: 30 VT: 194 QRS: 6 QRSD: 117 T: 94 QT: 425 QTc: 460 Interpretive Statements SINUS RHYTHM WITH OCCASIONAL VENTRICULAR PREMATURE COMPLEXES POSSIBLE RIGHT VENTRICULAR CONDUCTION DELAY [RSR (QR) IN V1/V2] Compared to ECG 12/01/2019 14:25:46 Ventricular premature complex(es) now present Sinus bradycardia no longer present Incomplete right bundle-branch block no longer present Myocardial infarct finding no longer present Electronically Signed On 12-02-2019 9:08:46 CDT by Claudia Hudson M.D. [id number]
--- NOTE | 2019-12-01 19:06 | PC.NURSE ---
patient report received from JOSE Douglas and care transferred to JOSE Avila
[2019-12-01 19:29] LABS: Fibrinogen 570 mg/dL (174-498)
[2019-12-01 19:37] LABS: Lactic Sepsis W/Reflex 3.1 mmol/L (0.5-2.2)
--- NOTE | 2019-12-01 19:37 | XRR_ITS ---
PROCEDURE INFORMATION: Exam: XR Chest, 1 View Exam date and time: 12/01/2019 7:38 PM Age: 74 years old Clinical indication: Device placement; Other: Central line placement TECHNIQUE: Imaging protocol: XR of the chest Views: 1 view. COMPARISON: CR (CHEST, ) 12/01/2019 1:57 PM FINDINGS: Tubes, catheters and devices: ET tube distal tip is positioned 2.3 cm superior to the paulino. Right jugular approach central venous catheter tip is positioned in the right atrium. Lungs: There are hazy perihilar and bibasilar opacities less prominent when compared to the prior study. Pleural space: Unremarkable. No pleural effusion. No pneumothorax. Heart/Mediastinum: Unremarkable. No cardiomegaly. Vasculature: There is calcified plaque in the aortic knob. Bones/joints: Unremarkable. Soft tissues: Heart size not optimally evaluated with a single AP view of the chest. Other findings: There is a G-tube in place. XR/XR chest 1V [id number] IMPRESSION: 1. Central venous catheter tip is positioned in the right atrium. 2. ET tube tip is positioned 2.3 cm superior to the paulino. 3. Interval improvement of the perihilar and bibasilar hazy pulmonary opacities.
[2019-12-01 19:38] LABS: D Dimer 5.41 ug/mIFEU (0-0.59)
--- NOTE | 2019-12-01 20:16 | PC.NURSE ---
patient taken to CT by nurse, resp hvac field service technician, and harvesting contractor
[2019-12-01 20:57] LABS: Reflex Lactate Order REFLEX LACTIC ORDERD
[2019-12-01 21:46] LABS: Lactic Acid level (Lactate) 1.8 mmol/L (0.5-2.2)
--- NOTE | 2019-12-01 21:47 | PC.NURSE ---
call to family Spoke with daughterKatherine. Update on patient status. all questions answered at this time. vital signs WNL. patient resting comfortably. Per daughterKatherine that patients ranjith Barillas is in the [place] and may contact ICU for further updates. Patient password set up with daughter. Last 4 of OV number. Password: [id number]. will continue to monitor patient.
[2019-12-01 21:51] LABS: Troponin 5 2HR 82.23 ng/L (0-10)
[2019-12-01 22:07] LABS: Procalcitonin 0.13 ng/mL (0-0.5)
[2019-12-01 22:19] LABS: C Reactive Protein 12.3 mg/L (0.0-4.9); Ferritin 84 ng/mL (15-150)
--- NOTE | 2019-12-01 22:19 | PC.NURSE ---
Call to physician Rosalind started at 2205 due to patient vital sings. BP:65/48 heart rate noted to be in the high 40s and low 50s. notified, no new orders at this time. will continue to monitor.
[2019-12-01 22:25] LABS: Troponin(5th) Baseline 81 ng/L (0-10)
[2019-12-01 22:25] LABS: Troponin 5 2HR Delta 1.23 ABS# (0-10)
[2019-12-01 22:46] LABS: Lactate Dehydrogenase 418 U/L (135-214)
--- NOTE | 2019-12-01 23:07 | PC.NURSE ---
call from [facility] Spoke with Cynthia Dietz about patient status/prognosis/life expectencies/family support. informed caller that patient is critical but stable at this time. Caller is from [facility] getting information so that Son, Eran can come home to see his mother from the tab ticketbroker. Cynthia was able to give nurse patient name//passcode. phone number to call back [facility] for medical staff: [phone] case #:[id number]
[2019-12-02] VITALS (176 sets, daily range): BP systolic 105–139; BP diastolic 52–91; PULSE 43–94; RESP 8–25; TEMP 36.9–37.6; O2SAT 92–100
[2019-12-02] MEDS: piperacillin-tazobactam 3.375 GM in sodium chloride 0.9% (plus) 50 ML IV ×3 (00:43→16:51)
[2019-12-02 01:09] LABS: ABG PCO2 37.6 mmHg (35-45); ABG PH Result 7.44 (7.35-7.45); Alveolar-Arterial Oxygen Gradi 17.9 mmHg (5-10); Arterial Blood Gas Hematocrit 38.7 % (37-47); Base Excess ABG 1.6 mmol/L (-2.0-2.0); Blood Gas Sample Site Brachial, right; Blood Gas Sample Type Arterial; Carboxyhemoglobin 0.9 %THgb (0.4-20.1); HCO3 ABG 25.6 mmol/L (22-26); HGB O2 Sat 96.9 % (95-100); Ionized Calcium Level - ABG 1.2 mmol/L (1.1-1.4); Methemoglobin 0.9 % (0.4-1.5); Oxygen Device VENT; Oxygen Saturation ABG 98.6; Potassium Level - ABG 4.1 mmol/L (3.5-5.0); Total Hemoglobin 12.6 g/dL (12-16)
[2019-12-02 01:33] LABS: Troponin 5 6HR 79.26 ng/L (0-10)
[2019-12-02 01:39] LABS: Troponin 5 6HR Delta -1.74 ng/L (0-12)
[2019-12-02 03:59] LABS: Basophils # 0.1 10^3/uL (0.0-0.1); Basophils % 0.3 %; Eosinophils % 0.1 %; Hematocrit 37.8 % (37.0-47.0); Hemoglobin 11.5 g/dL (11.5-15.3); Lymphocytes # 1.7 10^3/uL (0.8-4.8); Lymphocytes % 10.9 %; Mean Corpuscular HGB Conc 30.4 g/dL (30.0-36.0); Mean Corpuscular Volume 78.8 fL (81-99); Mean Platelet Volume 12.9 fL (7.4-10.4); Monocytes # 1.2 10^3/uL (0.2-0.9); Monocytes % 7.6 %; Neutrophils % 80.7 %; Nucleated Red Blood Cells % 0 %; Platelet Count 259 10^3/cmm (130-400); Red Cell Distribution Width 16.2 % (12.1-15.1); White Blood Count 15.6 10^3/uL (4.0-10.0)
[2019-12-02 04:16] LABS: Alanine Aminotransferase 32 U/L (0-33); Albumin Level 3.8 g/dL (3.5-5.2); Alkaline Phosphatase 80 IU/L (35-105); Anion Gap 13.3 (5-19); Aspartate Amino Transferase 37 U/L (0-32); Blood Urea Nitrogen 26 mg/dL (8-23); Calcium 9.4 mg/dL (8.5-10.5); Carbon Dioxide 27 mmol/L (22-29); Chloride 103 mmol/L (98-107); Globulin 2.4 g/dL (1.3-4.6); Glucose 231 mg/dL (65-115); Osmolality Calculated 292 mOsm/kg (285-295); Potassium 4.3 mmol/L (3.5-5.1); Sodium 139 mmol/L (136-145); Total Bilirubin 0.6 mg/dL (0.15-1.2); Total Protein 6.2 g/dL (6.6-8.7)
[2019-12-02] MEDS: FUROsemide 10 mg/mL SDV 10mL 80 MG IVP ×2 (04:43→16:52)
[2019-12-02] MEDS: enoxaparin 100 mg/mL Syringe SUBCUT ×2 (04:43→16:52)
[2019-12-02] MEDS: enoxaparin 30 mg/0.3 mL Syringe SUBCUT ×2 (04:43→16:52)
[2019-12-02 06:56] LABS: Urine Appearance Clear (CLEAR); Urine Color Yellow (Yellow)
[2019-12-02 06:57] LABS: Add Urine Culture? Yes; Bacteria Urine 4+; Bilirubin Urine Neg (NEGATIVE); Blood Urine Neg (Negative); Glucose Urine UA Norm (Normal); Ketones Urine Negative (Negative); Leukocyte Esterase Urine Negative (Negative); Nitrate Urine Positive (Negative); Protein Urine Neg (Negative); Specific Gravity, Urine 1.025 (1.005-1.030); Urobilinogen Urine Norm (Negative); pH Urine 5 (5-7)
[2019-12-02] MEDS: pantoprazole 40 mg SDV IVP (09:55)
--- NOTE | 2019-12-02 10:25 | P.PN_ITS ---
Subjective Subjective: Interval history: Patient improved this morning. She is currently on fentanyl 50 mics and is able to participate in conversation by gestures. Easily nods yes or no. Comprehends. T-max 99.7 Fahrenheit this morning. Denies being in any discomfort at this present time. Levophed was turned off this morning at around 7 AM. White count at 15.6. Creatinine slightly worsened at 1.7 today. Denies any complaints of chest pain prior to onset of symptoms. Troponins peaked at around 80. Delta signs have remained insignificant. She has diuresed 3.4 L. Net -2.7 L at this point. Weight is 124 kg from 129 kg started yesterday. D-dimer elevated at 5. CTA chest negative for PE. Shows bilateral pulmonary edema and mild effusions. COVID PCR pending. Lactate trended down from 3-1.8. UA with positive nitrates and WBCs 10-15. Amiodarone currently running at 0.5. Medications: Reviewed: Yes Vitals/I&O/Wt Last Vital Signs Temp 99.7 F H 12/02/19 08:00 Pulse 80 12/02/19 08:00 Resp 14 12/02/19 09:47 BP 111/52 12/02/19 08:00 Pulse Ox 92 12/02/19 08:00 12/01/19 12/02/19 12/02/19 22:59 06:59 14:59 Intake Total 470.467 / 470.557 245.937 / 716.494 Output Total 3050 / 3050 400 / 3450 Balance -2579.533 / -2579.443 -154.063 / -2733.506 Weight last 48 hrs Weight 124.284 kg Weight 129.274 kg Physical Exam Narrative: EXAM NARRATIVE: GEN: Awake, alert and oriented, no acute distress HEENT: ETT, NGT in place CVS: S1S2 N RS: CTA B/L Abd: Soft, nt/nd , bs+ WINDOWS DESKTOP ENGINEER: no focal neuro deficits Urinary Catheter Management^: Arteaga: Cath Placed During This Visit: yes Reason for Continuing Indwelling Catheter: Accurate Measurement of Urinary Output in Critically Ill Patients Urinary Catheter Date of Insertion: 12/01/19 Urinary Catheter Time of Insertion: 14:37 Data : 12/02/19 03:18 12/02/19 03:18 Micro: Microbiology 12/01/19 15:30 Blood Culture - Preliminary Blood SPECIMEN COLLECTED 12/01/19 15:25 Blood Culture - Preliminary Blood SPECIMEN COLLECTED 12/01/19 13:30 Gram Stain - Final Sputum - Endotracheal Tube Aspirate A&P Assessment and plan (1) Ventricular tachycardia: Status: Acute (2) Acute respiratory failure: Status: Acute Qualifiers: Respiratory failure complication: hypoxia Qualified Code(s): J96.01 - Acute respiratory failure with hypoxia (3) Congestive heart failure: Status: Acute Qualifiers: Heart failure chronicity: acute on chronic Heart failure type: combined systolic and diastolic Qualified Code(s): I50.43 - Acute on chronic combined systolic (congestive) and diastolic (congestive) heart failure (4) Cardiogenic shock: Status: Acute (5) UTI (urinary tract infection): Status: Acute (6) Leukocytosis: Status: Acute (7) SIRS (systemic inflammatory response syndrome): Status: Acute Additional A&P Information Continued ICU admission #Acute respiratory failure Appears to be related to acute on chronic CHF exacerbation. Echocardiogram shows Moderately dilated left ventricle. Severely decreased left ventricular systolic function.left ventricular ejection fraction is estimated at 25-30 %. Severely global hypokinesis. Unknown past baseline. Patient has unknown diagnosis of CAD and CHF for which she is on Lasix 40 mg p.o. twice daily, however does not know her last known ejection fraction. We will try to obtain records from [place]. Initial troponin in the 30s, then trended up to 80s, however since then serial delta's have remained unremarkable. Denies any complains of chest pain prior to onset of symptoms. CTA of the chest without any evidence of PE. Shows bilateral congestive changes and pleural effusions. No gross consolidation visible on CAT scan. Procalcitonin is negative. Unlikely to be pneumonia precipitating the current symptoms. Denies any antecedent symptoms such as fever cough. Currently meeting Sirs criteria and a positive UA (unknown if drawn from bag or after straight cath), cannot excuse sepsis, on empiric zosyn ABG, CXR now, planned extubation later today # EKG with Vfib/Vtach - continue amiodarone infusion , currently at 0.5 , HR 80s, resume home dose of carvedilol - Awaiting cardiology recommendatiosn on further titration/continuation of amiodarone - Continue Lasix 80mg iv q12h for CHF, Chandler vang , I/O - Dr. Hudson consulted from cardiology -[employer] PCR pending, Ag negative # Diabetes mellitus: Start mild insulin sliding scale, check Hba1c and lipid panel Full code DVT ppx: on full dose lovenox Attestations Medical Necessity Statement*: Acute respiratory failure Coding Level of Care Code Acute Psychiatric Social Worker Supervisor for [facility] Fwd Diagnoses Ventricular tachycardia I47.2 Acute respiratory failure J96.01 Respiratory failure complication: hypoxia Congestive heart failure I50.43 Heart failure chronicity: acute on chronic Heart failure type: combined systolic and diastolic Cardiogenic shock R57.0 UTI (urinary tract infection) N39.0 Leukocytosis D72.829 SIRS (systemic inflammatory response syndrome) R65.10
[2019-12-02 10:31] LABS: ABG PH Result 7.45 (7.35-7.45); Blood Gas Allen Test Pos; Blood Gas Operator Identificat BD; Blood Gas Sample Site Brachial, right; Blood Gas Sample Type Arterial
[2019-12-02 10:33] LABS: ABG PCO2 41.6 mmHg (35-45); Arterial Blood Gas Hematocrit 36.1 % (37-47); Carboxyhemoglobin 0.9 %THgb (0.4-20.1); HCO3 ABG 28.5 mmol/L (22-26); HGB O2 Sat 96.4 % (95-100); Methemoglobin 0.8 % (0.4-1.5); PO2 ABG 92.4 mmHg (80.0-100.0); Total Hemoglobin 11.8 g/dL (12-16)
[2019-12-02 10:53] LABS: Thyroid Stimulating Hormone 2.55 uIU/mL (0.27-4.20)
--- NOTE | 2019-12-02 10:55 | ECG_ITS ---
[facility] Test Date: 2019-12-02 Pat Name: Jose Carreno Department: Room: ICU02 Gender: Female Director Of Health Care Marketing: : 1945 Requested By: Alice Marion Order Number: [id number] Liliana MD: Claudia Hudson M.D. Measurements Intervals [place] Rate: 84 P: 66 FL: 192 QRS: -13 QRSD: 126 T: 140 QT: 464 QTc: 551 Interpretive Statements SINUS RHYTHM WITH FREQUENT VENTRICULAR PREMATURE COMPLEXES MODERATE T-WAVE ABNORMALITY, CONSIDER ANTEROLATERAL ISCHEMIA [-0.1+ mV T WAVE IN V3-V6] Compared to ECG 12/01/2019 18:33:51 T-wave abnormality now present Possible ischemia now present Electronically Signed On 12-03-2019 16:43:19 CDT by Claudia Hudson M.D. [id number]
--- NOTE | 2019-12-02 10:57 | XRR_ITS ---
PROCEDURE INFORMATION: Exam: XR Chest, 1 View Exam date and time: 12/02/2019 12:00 PM Age: 74 years old Clinical indication: Other: Evaluate for infiltrates; Additional info: Evalute for infiltrates TECHNIQUE: Imaging protocol: XR of the chest Views: 1 view. COMPARISON: CR (CHEST, ) 12/01/2019 8:37 PM FINDINGS: Tubes, catheters and devices: ET tube terminates above the level of the paulino. Right central venous catheter tip terminates right atrium. NG tube courses below the diaphragm with nonvisualization of the tip. Lungs: Slightly increased bilateral airspace opacities predominantly in the perihilar lower lobe distribution. Pleural space: Small pleural effusions. Heart/Mediastinum: Cardiomegaly. Bones/joints: No acute fracture. XR/XR chest 1V portable [id number] IMPRESSION: Slightly increased bilateral airspace opacities which can be seen with pulmonary edema or pneumonia in the appropriate clinical context.
[2019-12-02 11:30] LABS: Estmated Average Glucose 166; Hemoglobin A1C 7.4 % (4.0-6.0)
[2019-12-02] MEDS: FUROsemide 10 mg/mL SDV 4mL 40 MG IVP (11:32)
[2019-12-02 11:39] LABS: Chol HDL Ratio 3.24 mg/dL (0.0-4.40); Cholesterol 159 mg/dL (0-200); HDL Cholesterol 49 mg/dL (60-100); LDL Cholesterol Calculated 90 mg/dL (50-129); LDL HDL Ratio 1.84 RATIO (0.00-3.22); Triglycerides 102 mg/dL (0-150)
[2019-12-02 12:01] LABS: Glucose Point of Care 163 mg/dL (70-110)
--- NOTE | 2019-12-02 12:59 | PC.RESP ---
extubated pt extubated at 1220 and placed on 3lpm nc. tolerated well
--- NOTE | 2019-12-02 14:03 | P.CONIM_ITS ---
Providers/Reason For Consult Consulting Physican/Specialty*: Dr. Hudson, cardiology Reason for Consult*: Shortness of breath, hypoxic respiratory failure and elevated troponin Attending Physician: Alice Marion MD Primary Care Provider: Hiren Ferreira Jr, MD History of Present Illness History of Present Illness Jose Carreno is a 74 year old female with past medical history of coronary artery disease status post angioplasty and bare-metal stent placement on 29 December 2013 to proximal circumflex and obtuse marginal artery, hypertension, diabetes mellitus type 2, congestive heart failure with unknown ejection fraction. She presented to the ER yesterday with respiratory distress. As per patient, her daughter Katherine and on reviewing the chart it seems like, patient developed worsening shortness of breath that started acutely yesterday morning with some sensation of heart racing. Patient describes chronic lower extremity swelling but denies having any acute worsening of the swelling or medication or dietary noncompliance. She denies having any URI or UTI-like symptoms. She does complain of feeling tired and fatigued for past 2-3 weeks. She usually follows up with Dr. Ferreira and saw him last few months back. She had a similar episode though no not as bad approx 3 months ago. Her oxygen saturation was 92% when she was brought in via EMS and on arrival to the ER she was found to be hypertensive with blood pressure at 205/148 mmHg. It seems like she was briefly started on nitroglycerin drip. Because of frequent runs of nonsustained ventricular tachycardia. EKG showed sinus tachycardia with frequent PVCs and triplets. She did develop hypotension and was given amiodarone 150 mg IV followed by amiodarone drip. Her ABG showed pH of 7.19, PCO2 60 and PO2 of 84 on 15 L of oxygen via nonrebreather. Chest x-ray showed bilateral fluffy infiltrates with prominent pulmonary venous structure consistent with congestive heart failure. Pneumonia could not be excluded. She received Lasix 60 mg IV x1. She ended up being intubated and thereafter was on propofol and ketamine leading to significant hypotension and bradycardia to the point of requiring atropine administration. She was started on dopamine drip. Her initial troponin was at 80. She was started on Lasix 80 mg IV every 12 and was admitted to ICU as a PUI for COVID-19. COVID-19 PCR are still pending. Rapid antigen test was negative. Overnight she has diuresed 3.4 L and is -2.7 L. She was weaned off of dopamine and placed on Levophed drip briefly overnight that was turned off this morning. T-max was 99.7 Fahrenheit her creatinine was 1.5 that has increased to 1.7 today. She was successfully extubated this morning. Review of Systems Const: Denies: fever(s) or chills ENMT: Denies: throat pain, nasal discharge or nasal congestion Card: Denies: palpitations or syncope Resp: Denies: hemoptysis GI: Denies: vomiting : Denies: difficulty voiding, dysuria, urinary frequency or urinary urgency Musc: Reports: extremity swelling (chronic) Neuro: Denies: weakness in extremities Psych: Denies: anxiety or depression Erik/Lymph: Denies: petechiae or purpura Meds/Allergies Home Medications and Allergies Home Medications Medication Instructions Recorded Confirmed Last Taken Type aspirin 325 mg tablet,delayed 325 mg PO DAILY tab 05/01/19 12/01/19 12/01/19 History release carvedilol 3.125 mg tablet 3.125 mg PO BID 05/01/19 12/01/19 12/01/19 History cholecalciferol (vitamin D3) 25 2,000 unit PO DAILY cap 05/01/19 12/01/19 12/01/19 History mcg (1,000 unit) capsule furosemide 40 mg tablet 40 mg PO BID 05/01/19 12/01/19 12/01/19 History levothyroxine 75 mcg tablet 75 mcg PO DAILY tab 05/01/19 12/01/19 12/01/19 History losartan 50 mg tablet 50 mg PO DAILY tab 05/01/19 12/01/19 12/01/19 History metformin 500 mg tablet 500 mg PO BID 05/01/19 12/01/19 12/01/19 History potassium chloride 20 mEq 10 meq PO BID 05/01/19 12/01/19 12/01/19 History tablet,extended release(part/cryst) acetaminophen [Tylenol Extra 500 mg PO Q6H PRN 08/15/19 12/01/19 08/15/19 History Strength] hydrocodone-acetaminophen 1 - 2 tab PO Q5H PRN #30 tab 08/16/19 12/01/19 Unknown Rx simvastatin 10 mg PO BEDTIME 12/01/19 12/01/19 12/01/19 History Allergies Allergy/AdvReac Type Severity Reaction Status Date / Time cephalexin Allergy Mild Unknown Verified 08/16/19 08:28 Current Medications Current Medications Generic Name Dose Route Start Last Admin Trade Name Freq PRN Reason Stop Dose Admin Enoxaparin Sodium 100 mg 12/01/19 17:00 12/02/19 04:43 Lovenox SUBCUT 100 mg Q12H SMITH Administration Enoxaparin Sodium 30 mg 12/01/19 17:00 12/02/19 04:43 Lovenox SUBCUT 30 mg Q12H SMITH Administration Furosemide 80 mg 12/01/19 16:45 12/02/19 04:43 Lasix IVP 80 mg Q12H SMITH Administration Dopamine HCl/Dextrose 400 mg in 250 mls @ 24.239 mls/hr 12/01/19 14:45 12/01/19 21:25 Intropin Drip IV 0 mcg/kg/min CONT SMITH 0 mls/hr Titration Protocol 5 MCG/KG/MIN Piperacillin Sod/Tazobactam 50 mls @ 12.5 mls/hr 12/01/19 17:00 12/02/19 09:55 Sod 3.375 gm/ Sodium Chloride IV 12.5 mls/hr Q8H SMITH Administration Protocol Fentanyl 1,000 mcg/ Sodium 100 mls @ 0 mls/hr 12/01/19 16:15 12/02/19 06:52 Chloride IV 50 mcg/hr .Q0M SMITH 5 mls/hr Titration Protocol Per Protocol Norepinephrine Bitartrate 4 mg 254 mls @ 0 mls/hr 12/01/19 16:15 12/02/19 06:52 / Dextrose IV 0 mls/hr .Q0M SMITH 0 mls/hr Titration Protocol Per Protocol Amiodarone HCl 900 mg/ 518 mls @ 0 mls/hr 12/01/19 16:45 12/02/19 11:40 Dextrose/ IV Miscellaneous IV 0.5 mg/min Supplies .Q0M SMITH 17.3 mls/hr Administration Protocol Per Protocol Insulin Aspart 0 unit 12/02/19 12:00 12/02/19 11:59 Novolog SUBCUT 2 unit WM&BEDTIME SMITH Administration Protocol Pantoprazole Sodium 40 mg 12/02/19 09:00 12/02/19 09:55 Protonix IVP 40 mg DAILY SMITH Administration PFSH Acute PFSH: Medical History CAD (coronary artery disease) Diabetes HTN (hypertension) Hypercholesteremia Myocardial infarct, old Obesity Osteoarthritis Surgical History Hx of cataract surgery Hx of dilation and curettage Hx of heart artery stent Hx of tonsillectomy Hx of total knee arthroplasty S/P PTCA (percutaneous transluminal coronary angioplasty) Family History Father CAD (coronary artery disease) Myocardial infarction Mother Diabetes Social History Smoking and tobacco status: never smoked Alcohol intake: current Alcohol intake frequency: holidays/special occasions only Vitals/I&O/Wt Last Vital Signs Temp 99.1 F 12/02/19 12:00 Pulse 84 12/02/19 12:15 Resp 8 L 12/02/19 12:00 BP 132/83 12/02/19 12:00 Pulse Ox 98 12/02/19 12:00 12/01/19 12/02/19 12/02/19 22:59 06:59 14:59 Intake Total 470.467 / 470.557 245.937 / 716.494 Output Total 3050 / 3050 400 / 3450 Balance -2579.533 / -2579.443 -154.063 / -2733.506 Weight last 48 hrs Weight 274 lb Weight 285 lb Physical Exam Narrative: EXAM NARRATIVE: GENERAL: obese woman lying in bed in no acute distress HEENT: Pupils equal round reactive to light. No pallor or icterus. NECK: central trachea, JVD not appreciated, short thick neck. CARDIOVASCULAR SYSTEM: S1-S2 regular. No S3 or S4 present. No murmur rubs or gallops. RESPIRATORY SYSTEM: Chest clear to auscultation anteriorly, decreased breath sounds at bases ABDOMEN: Soft, obese, nontender and nondistended. Normal bowel sounds present. EXTREMITIES: No cyanosis or clubbing. 2+ edema. SUPERVISOR COSTUMING: Patient is alert oriented ?3. No focal neurological deficits. Urinary Catheter Management^: [place]: Cath Placed During This Visit: yes Reason for Continuing Indwelling Catheter: Accurate Measurement of Urinary Output in Critically Ill Patients Urinary Catheter Date of Insertion: 12/01/19 Urinary Catheter Time of Insertion: 14:37 Data Labs: Other Labs: Hb A1c 7.4, AST 37, ALT 32, LDH 418, baseline troponin T of 81, troponin T 120 minutes of 82 and 6-hour troponin T of 79. NT proBNP of 1992, CRP 12.3. TSH 2.55 and procalcitonin 0.13. Total cholesterol 159, LDL 890 HDL 49 and triglyceride 102. Micro: Micro: Microbiology 12/01/19 13:30 Gram Stain - Final Sputum - Endotrac heal Tube Aspirate Sputum Culture - P reliminary 12/01/19 15:30 Blood Culture - Pr eliminary Blood SPECIMEN [facility] TC 12/01/19 15:25 Blood Culture - Pr eliminary Blood SPECIMEN [facility] TC Other Data: Attestation for Other Data: I personally reviewed and interpreted the following: Other data: Chest CTA 01 December 2019 IMPRESSION: 1. Cardiomegaly with bilateral pleural effusions consistent with congestive heart failure. 2. Bilateral pulmonary ground-glass opacities likely represent pulmonary edema in this patient. Underlying pneumonia cannot be excluded. 3. No evidence for pulmonary embolus. TTE (12/01/19) CONCLUSIONS 1. This is a technically very difficult study. 2. Moderately dilated left ventricle. Severely decreased left ventricular systolic function.left ventricular ejection fraction is estimated at 25-30 %. Severely global hypokinesis. 3. Probably normal right ventrciular size and low normal systolic function. 4. Mild aortic valve regurgitation. 5. No prior similar studies to compare. CXR (12/02/19) IMPRESSION: Slightly increased bilateral airspace opacities which can be seen with pulmonary edema or pneumonia in the appropriate clinical context. EKG this morning showed sinus rhythm with frequent PVCs. Moderate T wave abnormality consider anterolateral ischemia. A&P Assessment and plan (1) Acute respiratory failure: Acute hypoxic hypercapnic respiratory failure in setting of pulmonary edema -Patient has been successfully extubated this morning. -There was initially concern for pulmonary embolism that has since been ruled out. Status: Acute Qualifiers: Respiratory failure complication: hypoxia Qualified Code(s): J96.01 - Acute respiratory failure with hypoxia (2) Pulmonary edema: Flash pulmonary edema; Unclear etiology. -Decompensated CHF leading to ischemia and runs of ventricular arrhythmia is a possibility. - This may possibly have contributed to flash pulmonary edema. -improved with diuresis. Status: Acute Qualifiers: Chronicity: acute Qualified Code(s): J81.0 - Acute pulmonary edema (3) Ventricular tachycardia: Frequent PVCs and runs of nonsustained ventricular tachycardia -She is currently on amiodarone drip that I will continue for now. -Once her blood pressure improves I will start her on low-dose metoprolol succinate and try to wean her off amiodarone drip. -Keep potassium more than 4 and magnesium more than 2. Status: Acute (4) Congestive heart failure: Acute on chronic congestive heart failure; possibly there is a drop in LV systolic function however the baseline is not known. -No regional wall motion abnormality on technically difficult transthoracic echo from this visit. -Etiology of decompensation could be underlying infection with UTI and possible pulmonary source (?aspiration). -Once patient is more euvolemic and renal function improves, will consider coronary angiogram. -Continue Lasix 80 mg IV every 12 hr for today, patient is responding well to diuretics. Status: Acute Qualifiers: Heart failure chronicity: acute on chronic Heart failure type: combined systolic and diastolic Qualified Code(s): I50.43 - Acute on chronic combined systolic (congestive) and diastolic (congestive) heart failure (5) Non-ST elevation VA (NSTEMI): Type II in setting of pulmonary edema, hypoxia. -On aspirin and statin. Status: Acute Additional A&P Information UTI-on abx per primary team Possible PNA- on Abx per primary team Transaminitis Acute kidney injury Acute respiratory acidosis: Resolved history of coronary artery disease Hypothyroidism Obesity Hypertension Hyperlipidemia Diabetes mellitus type 2 Thank you for allowing me to participate in patient's care please feel free to call with questions or concerns. 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
[2019-12-02 16:41] LABS: Glucose Point of Care 128 mg/dL (70-110)
[2019-12-02 18:42] LABS: Coronavirus Lab Test PTC SEE REPORT
[2019-12-02 21:12] LABS: Glucose Point of Care 157 mg/dL (70-110)
[2019-12-02] MEDS: atorvastatin 40 mg Tablet 10 MG PO (21:14)
[2019-12-03] VITALS (83 sets, daily range): BP systolic 91–149; BP diastolic 10–93; PULSE 64–89; RESP 10–24; TEMP 36.2–37.3; O2SAT 92–100
[2019-12-03] MEDS: piperacillin-tazobactam 3.375 GM in sodium chloride 0.9% (plus) 50 ML IV ×3 (01:21→17:13)
[2019-12-03] MEDS: lanolin oint 7 gm 1 APPLIC TOPICAL (01:38)
[2019-12-03 03:44] LABS: Basophils # 0.1 10^3/uL (0.0-0.1); Basophils % 0.7 %; Eosinophils # 0.3 10^3/uL (0.0-0.8); Eosinophils % 3.4 %; Hematocrit 34.9 % (37.0-47.0); Hemoglobin 10.7 g/dL (11.5-15.3); Lymphocytes # 2.3 10^3/uL (0.8-4.8); Lymphocytes % 25.1 %; Mean Corpuscular HGB Conc 30.7 g/dL (30.0-36.0); Mean Corpuscular Hemoglobin 24.7 pg (28.0-34.0); Mean Corpuscular Volume 80.4 fL (81-99); Monocytes # 1.1 10^3/uL (0.2-0.9); Monocytes % 12.2 %; Neutrophils # 5.38 10^3/uL (1.8-7.7); Neutrophils % 58.3 %; Nucleated Red Blood Cells % 0 %; Platelet Count 154 10^3/cmm (130-400); Red Blood Count 4.34 10^6/uL (4.1-5.3); Red Cell Distribution Width 16.2 % (12.1-15.1); White Blood Count 9.2 10^3/uL (4.0-10.0)
[2019-12-03 04:05] LABS: Alanine Aminotransferase 22 U/L (0-33); Albumin Level 3.5 g/dL (3.5-5.2); Alkaline Phosphatase 73 IU/L (35-105); Anion Gap 9.1 (5-19); Aspartate Amino Transferase 26 U/L (0-32); Blood Urea Nitrogen 21 mg/dL (8-23); Carbon Dioxide 33 mmol/L (22-29); Chloride 102 mmol/L (98-107); Globulin 2.5 g/dL (1.3-4.6); Glucose 120 mg/dL (65-115); Osmolality Calculated 290 mOsm/kg (285-295); Potassium 3.1 mmol/L (3.5-5.1); Sodium 141 mmol/L (136-145); Total Bilirubin 0.6 mg/dL (0.15-1.2)
[2019-12-03] MEDS: FUROsemide 10 mg/mL SDV 10mL 80 MG IVP (04:53)
[2019-12-03] MEDS: enoxaparin 100 mg/mL Syringe SUBCUT ×2 (04:53→17:18)
[2019-12-03] MEDS: potassium chloride premix 40 MEQ/100 ML PREMIX 25 MEQ IV (04:53)
[2019-12-03] MEDS: enoxaparin 30 mg/0.3 mL Syringe SUBCUT ×2 (04:53→17:20)
--- NOTE | 2019-12-03 05:33 | PC.NURSE ---
Addendum entered by Erin Hardy RN 12/03/19 06:26: Witnessed waste with Shari Marvin RN. Original Note: Fentanyl waste JOSE Doherty wasted 115ml of Fentanyl. witnessed by JOSE Ray.
[2019-12-03 07:46] LABS: Glucose Point of Care 146 mg/dL (70-110)
[2019-12-03 07:48] LABS: Oxygen Device VENT
--- NOTE | 2019-12-03 08:16 | P.PN_ITS ---
Subjective Subjective: Interval history: Reports today she is feeling better. Reports breathing is more comfortable. Says she is not normally on oxygen at home. Denies having sleep apnea. Has had a sleep study done perhaps about 3 years ago and says it did not show sleep apnea. She says she has a little bit of cough, this is nonproductive. She says she has no difficulties or cough associated with food or drink. Vitals/I&O/Wt Last Vital Signs Temp 98.7 F 12/03/19 04:00 Pulse 81 12/03/19 06:26 Resp 12 12/03/19 06:05 BP 138/81 12/03/19 06:05 Pulse Ox 98 12/03/19 06:26 12/02/19 12/03/19 12/03/19 22:59 06:59 14:59 Intake Total 658.877 / 708.877 20 / 728.877 50 / 50 Output Total 2650 / 2650 450 / 3100 Balance -1991.123 / -1941.123 -430 / -2371.123 50 / 50 Weight last 48 hrs Weight 122.924 kg Weight 124.284 kg Weight 129.274 kg Physical Exam Const: COMMON NORMALS: no acute distress and patient oriented x3 HENMT: COMMON NORMALS: oropharynx normal Neck/C-Spine: COMMON NORMALS: no JVD OTHER: R IJ CVC appears clean Resp: COMMON NORMALS: normal respiratory effort AUSCULTATION: diminished lung sounds (minimally) OTHER: No adventitious sounds Cardio: COMMON NORMALS: no JVD, regular rhythm, S1 normal heart sound present, S2 normal heart sound present and No murmurs present (Cardio) RHYTHM: regular rhythm HEART SOUNDS: S1 normal heart sound present and S2 normal heart sound present GI: COMMON NORMALS: Normal to inspection, nondistended, normoactive bowel sounds present, Soft to palpation and non-tender PALPATION: Yes Soft to palpation Extremity: COMMON NORMALS: no joint enlargement GENERAL: Yes edema (trace pitting edema, nonpitting edema) Neuro: COMMON NORMALS: patient oriented x3 and moves all extremities Skin: COMMON NORMALS: no rashes or lesions noted GENERAL SKIN EXAM: no rashes or lesions noted Urinary Catheter Management^: [place]teaga: Cath Placed During This Visit: yes Reason for Continuing Indwelling Catheter: Accurate Measurement of Urinary Output in Critically Ill Patients Urinary Catheter Date of Insertion: 12/01/19 Urinary Catheter Time of Insertion: 14:37 Data : 12/03/19 03:14 12/03/19 03:14 Micro: Microbiology 12/01/19 14:30 Urine Culture - Preliminary Urine,Clean Catch Gram Negative Rods 12/02/19 00:13 Bacterial Antigens - Final Urine,Voided 12/02/19 00:13 Legionella Urinary Antigen - Final Urine Catheterized 12/01/19 15:30 Blood Culture - Preliminary Blood NEGATIVE TO DATE 12/01/19 15:25 Blood Culture - Preliminary Blood NEGATIVE TO DATE 12/01/19 13:30 Gram Stain - Final Sputum - Endotracheal Tube Aspirate Sputum Culture - Preliminary A&P Assessment and plan (1) Ventricular tachycardia: Few PVCs noted on telemetry last night. No ventricular tachycardia noted. At this time no further bradycardia. Appreciate cardiology recommendations. Amiodarone has been discontinued. Switched over to metoprolol. Continue telemetry monitoring. Potassium was replaced. Check magnesium. Status: Acute (2) Acute respiratory failure: Secondary to acute on chronic systolic congestive heart failure. Not normally on oxygen at home. Does take 40 mg twice a day Lasix. Denies any chest pain or pressure. Has occasional cough, nonproductive, not related to food or drink. No PE seen on CTA. Lower extremity Dopplers pending. Currently is doing well on 2 L nasal cannula. Is diuresing well, is -2.3 L over the past 24 hours. Renal function appears to be permitting diuresis so far. Creatinine currently improved down to 1.4. Currently she is doing well with clear liquid diet, will advance to cardiac regular consistency diet. She denies any issues with aspiration in the past. Discussed with her concerns regarding congestive heart failure. Discussed also concerns that previously pneumonia cannot be excluded. This appears to be less likely, with resolution of leukocytosis. She remains afebrile. Rapid flu testing, COVID-19 testing, and urinary antigens all negative. Sputum and blood cultures are negative. For now continue Zosyn. If continues to do well may de-escalate antibiotics, depending also on results of urinary culture. May be able to leave the ICU if continues to do well. Right IJ CVC will need to be removed. Status: Acute Qualifiers: Respiratory failure complication: hypoxia Qualified Code(s): J96.01 - Acute respiratory failure with hypoxia (3) Congestive heart failure: As above. Status: Acute Qualifiers: Heart failure chronicity: acute on chronic Heart failure type: combined systolic and diastolic Qualified Code(s): I50.43 - Acute on chronic combined systolic (congestive) and diastolic (congestive) heart failure (4) Cardiogenic shock: Resolved. Status: Acute (5) UTI (urinary tract infection): 20-30,000 gram-negative rods growing in urine. Discussed with her. She denies any dysuria. At home does report some frequent urination, although is also taking Lasix. For now continue Zosyn. Follow-up ID and sensitivity. Status: Acute (6) Leukocytosis: Resolved. Status: Acute (7) SIRS (systemic inflammatory response syndrome): Resolved. Status: Acute Additional A&P Information Diabetes mellitus: Start mild insulin sliding scale, Hba1c 7.4. Continue statin. Consistent carb diet. Attestations Medical Necessity Statement*: Continue admission for assessment management of acute respiratory failure with hypoxia, acute congestive heart failure, with underlying cardiomyopathy, premature ventricular contractions. 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
[2019-12-03] MEDS: pantoprazole 40 mg SDV IVP (08:41)
[2019-12-03] MEDS: aspirin 325 mg EC Tablet PO (08:44)
[2019-12-03] MEDS: metoprolol succinate ER (24 HR) 25 mg Tablet 12.5 MG PO ×2 (08:44→18:10)
[2019-12-03] MEDS: levothyroxine 150 mcg Tablet 75 MCG PO (08:45)
[2019-12-03 09:04] LABS: Magnesium 1.9 mg/dL (1.7-2.3)
--- NOTE | 2019-12-03 09:25 | PC.NURSE ---
Patient has started on a new medication, metoprolol. I educated patient on risk of orthostatic hypotension. Advised to dangle legs before getting up, and to use her call light when needing to get up.
--- NOTE | 2019-12-03 09:53 | PC.CHAP ---
Pastoral Care Encounter/Spiritual Assessment Type of Contact [] Declined phlebotomist supervisor/instructor visit [] Patient/Family/Request visit [] Outpatient visit [] Follow-up visit [] Physician referral [] Code/Alert [x] Routine visit [] Staff referral [] Actively dying [] Patient sleeping [] Family support [] [] Out of room [] Palliative care [] [] Receiving care in room [] Pre-surgical visit [] Trauma [] Long length of stay [] ICU visit [] Other: Relational/Emotional Strength [] Patient feels connected with others/family/visitors/staff [] Distress [] Loneliness/isolation [] Abandonment Spirituality of Patient [] Person of Jennifer [] Attends Pentecostalism of their Jennifer [] Believes in Prayer [] Reads Bible or Pentecostal materials [] There are Spiritual issues to be addressed Professor Of Management Interventions [x] Prayer [x] Active listening [x] Non-anxious presence [x] Spiritual/emotional support [] Crisis/trauma care [] Spiritual counseling [] Bereavement support [] Provided bereavement packet [] Provided Bible/devotional materials [] Provided toy/stuffed animal, coloring book to patient or family member [] Provided Communion [] Anointing/[facility] [] Salvation [x] Completed spiritual assessment [] Other: Impact on Illness or Injury [] Angry [] Fearful [] Anxious [] Often cries [] Exhaustion [] Unable to work [] Unable to attend temple [] Unable to walk/stand [] Unable to read [] Unable to drive [] Unable to eat/drink [] Unable to sleep [] Unable to be with family [] Patient intubated [] Other: Summary Patient feeling so much better. Breathing improving Time spent with patient 10 min
--- NOTE | 2019-12-03 10:24 | PC.NURSE ---
Provided patient toothbrush, toothpaste and mouthwash. Independent with oral care.
[2019-12-03 11:42] LABS: Glucose Point of Care 169 mg/dL (70-110)
--- NOTE | 2019-12-03 11:55 | PM.PN ---
Subjective Subjective: Interval history: She is doing well. denies any complaints. Amiodarone gtt was stopped. Frequent PVC's noted on telemetry. Medications: Reviewed: Yes Medication Review Details: Current Medications Aspirin (Aspirin Ec) 325 mg PO DAILY [facility] Last Admin: 12/03/19 08:44 Dose: 325 mg Documented by: Atorvastatin Calcium (Lipitor) 20 mg PO BEDTIME [facility] Dextrose (D50w) 25 ml IVP ONCE PRN; Protocol PRN Reason: hypoglycemia protocol Dextrose (D50w) 50 ml IVP PRN PRN; Protocol PRN Reason: hypoglycemia protocol Enoxaparin Sodium (Lovenox) 100 mg SUBCUT Q12H [facility] Last Admin: 12/03/19 04:53 Dose: 100 mg Documented by: Enoxaparin Sodium (Lovenox) 30 mg SUBCUT Q12H [facility] Last Admin: 12/03/19 04:53 Dose: 30 mg Documented by: Furosemide (Lasix) 80 mg IVP Q12H [facility] Last Admin: 12/03/19 04:53 Dose: 80 mg Documented by: Glucagon (Glucagen) 1 mg IM ONCE PRN; Protocol PRN Reason: Adult Acute Hypoglycemia Prot. Piperacillin Sod/Tazobactam (Sod 3.375 gm/ Sodium Chloride) 50 mls @ 12.5 mls/hr IV Q8H [facility]; Protocol Last Infusion: 12/03/19 13:49 Dose: Infused Documented by: Fentanyl 1,000 mcg/ Sodium (Chloride) 100 mls @ 0 mls/hr IV .Q0M [facility]; Protocol Last Titration: 12/02/19 06:52 Dose: 50 mcg/hr, 5 mls/hr Documented by: Propofol (Diprivan) 1,000 mg in 100 mls @ 0 mls/hr IV .Q0M [facility]; Protocol Norepinephrine Bitartrate 4 mg (/ Dextrose) 254 mls @ 0 mls/hr IV .Q0M [facility]; Protocol Last Titration: 12/02/19 06:52 Dose: 0 mls/hr, 0 mls/hr Documented by: Amiodarone HCl 900 mg/Dextrose/ IV Miscellaneous Supplies 518 mls @ 0 mls/hr IV .Q0M SM[facility]; Protocol Last Titration: 12/02/19 22:42 Dose: 0 mg/min, 0 mls/hr Documented by: Dextrose (D5w) 500 mls @ 100 mls/hr IV ONCE PRN; Protocol PRN Reason: Adult Acute Hypoglycemia Prot Insulin Aspart (Novolog) 0 unit SUBCUT WM&BEDTIME [facility]; Protocol Last Admin: 12/03/19 11:45 Dose: 2 unit Documented by: Lanolin (Lanolin Oint) 1 applic TOPICAL PRN PRN PRN Reason: DRYNESS Last Admin: 12/03/19 01:38 Dose: 1 applic Documented by: Levothyroxine Sodium (Synthroid) 75 mcg PO DAILY [facility] Last Admin: 12/03/19 08:45 Dose: 75 mcg Documented by: Metoprolol Succinate (Toprol Xl) 12.5 mg PO BID [facility] Last Admin: 12/03/19 08:44 Dose: 12.5 mg Documented by: Ondansetron HCl (Zofran) 4 mg IVP Q6H PRN PRN Reason: NAUSEA AND VOMITING Pantoprazole Sodium (Protonix) 40 mg IVP DAILY [facility] Last Admin: 12/03/19 08:41 Dose: 40 mg Documented by: Vitals/I&O/Wt Last Vital Signs Temp 98.2 F 12/03/19 10:00 Pulse 77 12/03/19 10:00 Resp 17 12/03/19 10:00 BP 91/69 12/03/19 10:00 Pulse Ox 98 12/03/19 10:00 12/02/19 12/03/19 12/03/19 22:59 06:59 14:59 Intake Total 658.877 / 708.877 20 / 728.877 510 / 510 Output Total 2650 / 2650 450 / 3100 150 / 150 Balance -1991.123 / -1941.123 -430 / -2371.123 360 / 360 Weight last 48 hrs Weight 271 lb Weight 274 lb Weight 285 lb Physical Exam Narrative: EXAM NARRATIVE: GENERAL: obese woman lying in bed in no acute distress HEENT: Pupils equal round reactive to light. No pallor or icterus. NECK: central trachea, JVD not appreciated, short thick neck. CARDIOVASCULAR SYSTEM: S1-S2, irregular. No S3 or S4 present. No murmur rubs or gallops. RESPIRATORY SYSTEM: Chest clear to auscultation anteriorly, decreased breath sounds at bases ABDOMEN: Soft, obese, nontender and nondistended. Normal bowel sounds present. EXTREMITIES: No cyanosis or clubbing. 1+ edema (improved). LOT ATTENDANT: Patient is alert oriented ?3. No focal neurological deficits. Urinary Catheter Management^: Arteaga: Cath Placed During This Visit: yes Reason for Continuing Indwelling Catheter: Accurate Measurement of Urinary Output in Critically Ill Patients Urinary Catheter Date of Insertion: 12/01/19 Urinary Catheter Time of Insertion: 14:37 Data : 12/03/19 03:14 12/03/19 03:14 Micro: Microbiology 12/01/19 13:30 Gram Stain - Final Sputum - Endotracheal Tube Aspirate Sputum Culture - Final 12/01/19 14:30 Urine Culture - Preliminary Urine,Clean Catch Gram Negative Rods 12/02/19 00:13 Bacterial Antigens - Final Urine,Voided 12/02/19 00:13 Legionella Urinary Antigen - Final Urine Catheterized 12/01/19 15:30 Blood Culture - Preliminary Blood NEGATIVE TO DATE 12/01/19 15:25 Blood Culture - Preliminary Blood NEGATIVE TO DATE A&P Assessment and plan (1) Acute respiratory failure: Acute hypoxic hypercapnic respiratory failure in setting of pulmonary edema -Patient has been successfully extubated this morning. -There was initially concern for pulmonary embolism that has since been ruled out. Status: Acute Qualifiers: Respiratory failure complication: hypoxia Qualified Code(s): J96.01 - Acute respiratory failure with hypoxia (2) Pulmonary edema: Flash pulmonary edema; Unclear etiology. -Decompensated CHF leading to ischemia and runs of ventricular arrhythmia is a possibility. - This may possibly have contributed to flash pulmonary edema. -improved with diuresis. Status: Acute Qualifiers: Chronicity: acute Qualified Code(s): J81.0 - Acute pulmonary edema (3) Ventricular tachycardia: Frequent PVCs and runs of nonsustained ventricular tachycardia -She is currently on amiodarone drip that I will continue for now. -Once her blood pressure improves I will start her on low-dose metoprolol succinate and try to wean her off amiodarone drip. -Keep potassium more than 4 and magnesium more than 2. Status: Acute (4) Congestive heart failure: Acute on chronic congestive heart failure; possibly there is a drop in LV systolic function however the baseline is not known. -No regional wall motion abnormality on technically difficult transthoracic echo from this visit. -Etiology of decompensation could be underlying infection with UTI and possible pulmonary source (?aspiration). -Once patient is more euvolemic and renal function improves, will consider coronary angiogram. -will hold lasix this afternoon and possibly switch to PO tomorrow. Status: Acute Qualifiers: Heart failure chronicity: acute on chronic Heart failure type: combined systolic and diastolic Qualified Code(s): I50.43 - Acute on chronic combined systolic (congestive) and diastolic (congestive) heart failure (5) Non-ST elevation VA (NSTEMI): Type II in setting of pulmonary edema, hypoxia. -On aspirin and statin. Status: Acute Additional A&P Information UTI-on abx per primary team Possible PNA- on Abx per primary team Transaminitis Acute kidney injury Hypotension: 2/2 medications and post intubation; resolved Acute respiratory acidosis: Resolved history of coronary artery disease Hypothyroidism Obesity Hypertension Hyperlipidemia Diabetes mellitus type 2 Thank you for allowing me to participate in patient's care please feel free to call with questions or concerns. Attestations Medical Necessity Statement*: As per primary team. Coding Level of Care Code Acute Air Export Operations Agent for [facility] Diagnoses Acute respiratory failure J96.01 Respiratory failure complication: hypoxia Pulmonary edema J81.0 Chronicity: acute Ventricular tachycardia I47.2 Congestive heart failure I50.43 Heart failure chronicity: acute on chronic Heart failure type: combined systolic and diastolic Non-ST elevation VA (NSTEMI) I21.4
--- NOTE | 2019-12-03 12:55 | PC.NURSE ---
Per patients request, i assisted patient up to the side of the bed, sitting with legs dangling. THis is the first time since admission the patient has sat up this way and was recently prescribed metoprolol and has an increased dose of lasix compared to her at home prescription. I remained with patient for about 10 minutes to observe for signs of dizziness. Also educated patient about possible dizziness.
--- NOTE | 2019-12-03 13:41 | PC.NURSE ---
after patient was done using the commode, I changed the bed and provided a new gown.
[2019-12-03] MEDS: magnesium sulfate premix 2 GM/50 ML PIGGYBACK IV (13:45)
--- NOTE | 2019-12-03 15:32 | PC.NURSE ---
Observed a decrease in urine output, approximately 10 ml an hour for the past 2 hours, down from approximately 60 ml an hour this morning. I alerted Dr Levy. He advised to do a bladder scan and flush the catheter if bladder volume is 200 mL plus, and alert him if there is no increase in the next few hours. I did a bladder scan, volume is approximately 85. Will continue to track output and report back to Dr Levy.
--- NOTE | 2019-12-03 16:50 | USCV_ITS ---
Jose Carreno Age: 74 Gender: F : 1945 Exam Date: 12/03/2019 05:55 Ordering Phys: Alice Marion MD Technologist: Abby Bui Exam Location: [facility] – [place] Indication: SWELLING HISTORY: Lower extremity swelling. PROCEDURES: Venous duplex imaging was performed in bilateral lower extremities. The following venous structures were evaluated: common femoral vein, profunda vein, proximal portion of the greater saphenous vein, superficial femoral vein, and the popliteal vein. In addition, the posterior tibial and peroneal trunk were evaluated. Serial compression, augmentation maneuvers, and spectral Doppler flow evaluation were performed. FINDINGS: Normal 2-D Doppler and augmentation and compressibility throughout the lower extremity venous structures. Additional imaging through the proximal calf veins also reveals no thrombus. Limited evaluation of the greater saphenous vein is patent with no thrombus.. There is a left lower extremity Barron's cyst noted. CONCLUSIONS No evidence of right lower extremity DVT. No evidence of left lower extremity DVT. Popliteal cyst measuring 3.7 x 0.8cm Antoni Noriega MD (Electronically Signed) Final Date: 03 December 2019 12:58 S
[2019-12-03 16:59] LABS: Glucose Point of Care 125 mg/dL (70-110)
--- NOTE | 2019-12-03 18:21 | PC.NURSE ---
Transfer report given to Ela in CSU
--- NOTE | 2019-12-03 18:48 | PC.NURSE ---
Patient arrived to CSU from ICU. Patient oriented to room and call light. Report given to oncoming nurse.
--- NOTE | 2019-12-03 19:06 | PC.NURSE ---
PT ARRIVED TO CSU 105. PT AMBULATED TO CHAIR. PT DENIES PAIN AT THIS TIME. PT STATES THAT THEY ARE COMFORTABLE AND DOESN'T NEED ANYTHING. VS BP 109/84, HR 88, SPO2 95% (2L NC), RR 20. PT ORIENTATED TO ROOM AND EDUCATED ON FALL RISK. PT STATES THAT THEY WILL CALL FOR HELP BEFORE TRANSFERRING TO THE BED. WILL CONTINUE TO MONITOR.
--- NOTE | 2019-12-03 19:12 | PC.NURSE ---
transferred to u per w/c. tablet andcell phone with pt.
[2019-12-03 20:08] LABS: Glucose Point of Care 214 mg/dL (70-110)
[2019-12-03] MEDS: atorvastatin 40 mg Tablet 20 MG PO (20:39)
[2019-12-04] VITALS (8 sets, daily range): BP systolic 123–148; BP diastolic 76–86; PULSE 72–85; RESP 13–27; TEMP 36.6–36.8; O2SAT 96–99; BMI 44.4
[2019-12-04] MEDS: piperacillin-tazobactam 3.375 GM in sodium chloride 0.9% (plus) 50 ML IV ×2 (00:42→09:07)
[2019-12-04] MEDS: enoxaparin 30 mg/0.3 mL Syringe SUBCUT (04:54)
[2019-12-04] MEDS: enoxaparin 100 mg/mL Syringe SUBCUT (04:54)
[2019-12-04 05:32] LABS: Magnesium 2.4 mg/dL (1.7-2.3)
--- NOTE | 2019-12-04 06:24 | PC.NURSE ---
PT STATES THAT THEY SLEPT WELL. PT DENIES PAIN AT THIS TIME. WILL CONTINUE TO MONITOR.
[2019-12-04 06:46] LABS: Glucose Point of Care 126 mg/dL (70-110)
--- NOTE | 2019-12-04 08:07 | P.PN_ITS ---
Subjective Subjective: Interval history: She was transferred out of unit yesterday. She feels well and denies any CP, SOB. She complains of some nasal congestion. Medications: Reviewed: Yes Medication Review Details: Current Medications Amoxicillin/Clavulanate Potassium (Augmentin 875-125 Mg) 1 tab PO BID [facility]; Protocol Last Admin: 12/04/19 10:13 Dose: 1 tab Documented by: Aspirin (Aspirin Ec) 325 mg PO DAILY [facility] Last Admin: 12/04/19 09:05 Dose: 325 mg Documented by: Atorvastatin Calcium (Lipitor) 20 mg PO BEDTIME [facility] Last Admin: 12/03/19 20:39 Dose: 20 mg Documented by: Dextrose (D50w) 25 ml IVP ONCE PRN; Protocol PRN Reason: hypoglycemia protocol Dextrose (D50w) 50 ml IVP PRN PRN; Protocol PRN Reason: hypoglycemia protocol Enoxaparin Sodium (Lovenox) 100 mg SUBCUT Q12H [facility] Last Admin: 12/04/19 04:54 Dose: 100 mg Documented by: Enoxaparin Sodium (Lovenox) 30 mg SUBCUT Q12H [facility] Last Admin: 12/04/19 04:54 Dose: 30 mg Documented by: Glucagon (Glucagen) 1 mg IM ONCE PRN; Protocol PRN Reason: Adult Acute Hypoglycemia Prot. Fentanyl 1,000 mcg/ Sodium (Chloride) 100 mls @ 0 mls/hr IV .Q0M [facility]; Protocol Last Titration: 12/02/19 06:52 Dose: 50 mcg/hr, 5 mls/hr Documented by: Dextrose (D5w) 500 mls @ 100 mls/hr IV ONCE PRN; Protocol PRN Reason: Adult Acute Hypoglycemia Prot Sodium Chloride (Sodium Chloride 0.9%) 1,000 mls @ 50 mls/hr IV .Q20H ONE Stop: 12/05/19 06:12 Insulin Aspart (Novolog) 0 unit SUBCUT WM&BEDTIME [facility]; Protocol Last Admin: 12/04/19 07:42 Dose: Not Given Documented by: Lanolin (Lanolin Oint) 1 applic TOPICAL PRN PRN PRN Reason: DRYNESS Last Admin: 12/03/19 01:38 Dose: 1 applic Documented by: Levothyroxine Sodium (Synthroid) 75 mcg PO DAILY [facility] Last Admin: 12/04/19 09:05 Dose: 75 mcg Documented by: Metoprolol Succinate (Toprol Xl) 25 mg PO BID [facility] Last Admin: 12/04/19 09:05 Dose: 25 mg Documented by: Ondansetron HCl (Zofran) 4 mg IVP Q6H PRN PRN Reason: NAUSEA AND VOMITING Pantoprazole Sodium (Protonix) 40 mg IVP DAILY [facility] Last Admin: 12/04/19 09:07 Dose: 40 mg Documented by: Vitals/I&O/Wt Last Vital Signs Temp 98.3 F 12/04/19 06:52 Pulse 78 12/04/19 07:48 Resp 27 H 12/04/19 06:52 BP 146/86 12/04/19 06:52 Pulse Ox 98 12/04/19 07:48 12/03/19 12/04/19 12/04/19 22:59 06:59 14:59 Intake Total 530 / 1330 240 / 1570 Output Total 125 / 545 375 / 920 Balance 405 / 785 -135 / 650 Weight last 48 hrs Weight 275 lb 6 oz Weight 271 lb Intake & Output 12/02/19 12/03/19 12/04/19 12/05/19 06:59 06:59 06:59 06:59 Intake Total 716.494 / 716.494 728.877 / 541.182 2917 / 1570 Output Total 3450 / 3450 3100 / 3100 920 / 920 Balance -2733.506 / -2733.506 -2371.123 / -2371.123 650 / 650 Weight 274 lb 271 lb 275 lb 6 oz Physical Exam Narrative: EXAM NARRATIVE: GENERAL: obese woman lying in bed in no acute distr ess HEENT: Pupils equal round reactive to light. No pallor or icterus. NECK: central trachea, JVD not appreciated, short thick neck. CARDIOVASCULAR SYSTEM: S1-S2, irregular with frequent ectopy. No S3 or S4 present. No murmur rubs or gallops. RESPIRATORY SYSTEM: Chest clear to auscultation anteriorly, decreased breath sounds at bases ABDOMEN: Soft, obese, nontender and nondistended. Normal bowel sounds present. EXTREMITIES: No cyanosis or clubbing. trace-1+ edema (improved). CERTIFIED SCRUB TECH: Patient is alert oriented ?3. No focal neurological deficits. Urinary Catheter Management^: Arteaga: Cath Placed During This Visit: yes Reason for Continuing Indwelling Catheter: Accurate Measurement of Urinary Output in Critically Ill Patients Urinary Catheter Date of Insertion: 12/01/19 Urinary Catheter Time of Insertion: 14:37 Data : 12/03/19 03:14 12/03/19 03:14 Micro: Microbiology 12/01/19 14:30 Urine Culture - Final Urine,Clean Catch Escherichia fergusonii 12/02/19 00:13 MRSA Culture - Final Nose 12/01/19 13:30 Gram Stain - Final Sputum - Endotracheal Tube Aspirate Sputum Culture - Final 12/02/19 00:13 Bacterial Antigens - Final Urine,Voided A&P Assessment and plan (1) Acute respiratory failure: Acute hypoxic hypercapnic respiratory failure in setting of pulmonary rafael ma -Patient has been successfully extubated this morning. -There was initially concern for pulmonary embolism that has since been ruled out. -resolved, currently on oxygen via nasal canula. Status: Acute Qualifiers: Respiratory failure complication: hypoxia Qualified Code(s): J96.01 - Acute respiratory failure with hypoxia (2) Pulmonary edema: Flash pulmonary edema; Unclear etiology. -Decompensated CHF leading to ischemia and runs of ventricular arrhythmia is a possibility. - This may possibly have contributed to flash pulmonary edema. -improved with diuresis. Status: Acute Qualifiers: Chronicity: acute Qualified Code(s): J81.0 - Acute pulmonary edema (3) Ventricular tachycardia: Frequent PVCs and runs of nonsustained ventricular tachycardia -Off of amiodarone drip for >48 hr, No NSVT on telemetry. -Increase metoprolol succinate to 25 mg twice a day. -Keep potassium more than 4 and magnesium more than 2. Status: Acute (4) Congestive heart failure: Acute on chronic congestive heart failure; possibly there is a drop in LV systolic function however the baseline is not known. -No regional wall motion abnormality on technically difficult transthoracic echo from this visit. -Etiology of decompensation could be underlying infection with UTI and possible pulmonary source (?aspiration). -Plan for coronary angiogram later this afternoon . -received lasix 80 mg IV x 1 this morning and possibly switch to PO tomorrow. Status: Acute Qualifiers: Heart failure chronicity: acute on chronic Heart failure type: combined systolic and diastolic Qualified Code(s): I50.43 - Acute on chronic combined systolic (congestive) and diastolic (congestive) heart failure (5) Non-ST elevation MD (NSTEMI): Type II in setting of pulmonary edema, hypoxia. -On aspirin and statin. Status: Acute Additional A&P Information UTI-on abx per primary team Possible PNA- on Abx per primary team Transaminitis- resolved Acute kidney injury - resolved Hypotension: 2/2 medications and post intubation; resolved Acute respiratory acidosis: Resolved history of coronary artery disease Hypothyroidism Obesity Hypertension Hyperlipidemia Diabetes mellitus type 2 Thank you for allowing me to participate in patient's care please feel free to call with questions or concerns. Attestations Medical Necessity Statement*: Needs hospital stay for CHF, NSVT Coding Level of Care Code Acute Resource Manager for [facility] Fwd Diagnoses Acute respiratory failure J96.01 Respiratory failure complication: hypoxia Pulmonary edema J81.0 Chronicity: acute Ventricular tachycardia I47.2 Congestive heart failure I50.43 Heart failure chronicity: acute on chronic Heart failure type: combined systolic and diastolic Non-ST elevation MD (NSTEMI) I21.4
--- NOTE | 2019-12-04 08:20 | DCPLANNER ---
Updated Pg 2 of IM and explained to pt. No questions, copy provided.
[2019-12-04 08:53] LABS: Basophils # 0.1 10^3/uL (0.0-0.1); Basophils % 0.7 %; Eosinophils # 0.4 10^3/uL (0.0-0.8); Eosinophils % 4.7 %; Hemoglobin 10.6 g/dL (11.5-15.3); Lymphocytes # 2.3 10^3/uL (0.8-4.8); Lymphocytes % 27.7 %; Mean Corpuscular HGB Conc 29.4 g/dL (30.0-36.0); Mean Corpuscular Hemoglobin 23.9 pg (28.0-34.0); Mean Corpuscular Volume 81.1 fL (81-99); Mean Platelet Volume 12.8 fL (7.4-10.4); Monocytes # 1.2 10^3/uL (0.2-0.9); Monocytes % 14.6 %; Neutrophils # 4.39 10^3/uL (1.8-7.7); Neutrophils % 52.1 %; Nucleated Red Blood Cells % 0 %; Platelet Count 175 10^3/cmm (130-400); Red Blood Count 4.44 10^6/uL (4.1-5.3); Red Cell Distribution Width 16.1 % (12.1-15.1); White Blood Count 8.4 10^3/uL (4.0-10.0)
[2019-12-04] MEDS: levothyroxine 150 mcg Tablet 75 MCG PO (09:05)
[2019-12-04] MEDS: aspirin 325 mg EC Tablet PO (09:05)
[2019-12-04] MEDS: metoprolol succinate ER (24 HR) 25 mg Tablet PO ×2 (09:05→17:27)
[2019-12-04] MEDS: FUROsemide 10 mg/mL SDV 10mL 80 MG IVP (09:06)
[2019-12-04 09:07] LABS: Anion Gap 14.6 (5-19); Blood Urea Nitrogen 22 mg/dL (8-23); Calcium 8.6 mg/dL (8.5-10.5); Carbon Dioxide 30 mmol/L (22-29); Chloride 101 mmol/L (98-107); Glucose 111 mg/dL (65-115); Osmolality Calculated 291 mOsm/kg (285-295); Potassium 3.6 mmol/L (3.5-5.1); Sodium 142 mmol/L (136-145)
[2019-12-04] MEDS: pantoprazole 40 mg SDV IVP (09:07)
--- NOTE | 2019-12-04 09:38 | PM.PN ---
Subjective Subjective: Interval history: She is doing well. Does report having some congestion-like feeling in her chest last night after moving down from ICU. Says had an episode of cough. Could not bring up any sputum, although did feel there was some lodged in her airways. Vitals/I&O/Wt Last Vital Signs Temp 98.3 F 12/04/19 06:52 Pulse 78 12/04/19 07:48 Resp 27 H 12/04/19 06:52 BP 146/86 12/04/19 06:52 Pulse Ox 98 12/04/19 07:48 12/03/19 12/04/19 12/04/19 22:59 06:59 14:59 Intake Total 530 / 1330 290 / 1620 Output Total 125 / 545 375 / 920 Balance 405 / 785 -85 / 700 Weight last 48 hrs Weight 124.908 kg Weight 122.924 kg Physical Exam Const: COMMON NORMALS: no acute distress and patient oriented x3 HENMT: COMMON NORMALS: oropharynx normal Neck/C-Spine: COMMON NORMALS: no JVD OTHER: R IJ CVC appears clean with some crusted blood on the dressing, no surrounding erythema Resp: COMMON NORMALS: normal respiratory effort AUSCULTATION: diminished lung sounds OTHER: No adventitious sounds Cardio: COMMON NORMALS: no JVD, regular rhythm, S1 normal heart sound present, S2 normal heart sound present and No murmurs present (Cardio) RHYTHM: regular rhythm HEART SOUNDS: S1 normal heart sound present and S2 normal heart sound present GI: COMMON NORMALS: Normal to inspection, nondistended, normoactive bowel sounds present, Soft to palpation and non-tender PALPATION: Yes Soft to palpation Extremity: COMMON NORMALS: no joint enlargement GENERAL: Yes edema (trace pitting edema, nonpitting edema) Neuro: COMMON NORMALS: patient oriented x3 and moves all extremities Skin: COMMON NORMALS: no rashes or lesions noted GENERAL SKIN EXAM: no rashes or lesions noted Urinary Catheter Management^: Arteaga: Cath Placed During This Visit: yes Reason for Continuing Indwelling Catheter: Accurate Measurement of Urinary Output in Critically Ill Patients Urinary Catheter Date of Insertion: 12/01/19 Urinary Catheter Time of Insertion: 14:37 Data : 12/04/19 03:14 12/04/19 04:18 Micro: Microbiology 12/01/19 14:30 Urine Culture - Final Urine,Clean Catch Escherichia missyonii 12/02/19 00:13 MRSA Culture - Final Nose 12/01/19 13:30 Gram Stain - Final Sputum - Endotracheal Tube Aspirate Sputum Culture - Final 12/02/19 00:13 Bacterial Antigens - Final Urine,Voided A&P Assessment and plan (1) Acute respiratory failure: Urine output decreased last night. Today receiving 1 dose 80 mg IV additional Lasix. Will maintain Arteaga catheter in place for now. Remove right IJ CVC. We will stop Zosyn. Transition to oral antibiotic. Continue attempts to wean off oxygen. Acute on chronic systolic congestive heart failure. Possible pneumonia. Not normally on oxygen at home. Denies any chest pain or pressure. Has occasional cough, nonproductive, not related to food or drink. No PE seen on CTA. Lower extremity Dopplers without any evidence of DVT. We will try to get her mobilized. Discussed getting up and walking in her room, and out into the hallway to see how she is feeling. She lives alone at home. Does say her daughter is a physical therapist. Status: Acute Qualifiers: Respiratory failure complication: hypoxia Qualified Code(s): J96.01 - Acute respiratory failure with hypoxia (2) Congestive heart failure: As above. Status: Acute Qualifiers: Heart failure chronicity: acute on chronic Heart failure type: combined systolic and diastolic Qualified Code(s): I50.43 - Acute on chronic combined systolic (congestive) and diastolic (congestive) heart failure (3) Ventricular tachycardia: On telemetry occasional PVCs. No ventricular tachycardia noted. Tentative plans for additional assessment with coronary angiography by cardiology depending on renal function during this admission. So far doing well on metoprolol. Continue telemetry monitoring. As she is receiving additional dose of Lasix today, will give additional K. Magnesium not low. Status: Acute (4) Cardiogenic shock: Resolved. Status: Acute (5) UTI (urinary tract infection): E yolisi. Resistant to ampicillin, quinolones, tetracycline, Bactrim. Will switch over to augmentin. Status: Acute (6) Leukocytosis: Resolved. Status: Acute (7) SIRS (systemic inflammatory response syndrome): Resolved. Status: Acute Additional A&P Information Diabetes mellitus: mild insulin sliding scale, Hba1c 7.4. Continue statin. Consistent carb diet. Attestations Medical Necessity Statement*: Continue admission for assessment and management of CHF exacerbation, possible pneumonia, as well as ventricular arrhythmias, additional evaluation for coronary artery disease. Coding Level of Care Code Acute System Sales Consultant for [facility] Fwd Diagnoses Acute respiratory failure J96.01 Respiratory failure complication: hypoxia Congestive heart failure I50.43 Heart failure chronicity: acute on chronic Heart failure type: combined systolic and diastolic Ventricular tachycardia I47.2 Cardiogenic shock R57.0 UTI (urinary tract infection) N39.0 Leukocytosis D72.829 SIRS (systemic inflammatory response syndrome) R65.10
[2019-12-04] MEDS: amoxicillin-clav 875-125 mg Tablet 1 TAB PO ×2 (10:13→17:27)
[2019-12-04] MEDS: potassium chloride ER 10 mEq Tablet 20 MEQ PO (10:13)
[2019-12-04 11:03] LABS: Glucose Point of Care 184 mg/dL (70-110)
[2019-12-04] MEDS: sodium chloride 0.9% 1,000 ML 50 ML IV (12:46)
[2019-12-04] MEDS: diphenhydrAMINE 50 mg Capsule PO (15:30)
[2019-12-04 16:12] LABS: Glucose Point of Care 117 mg/dL (70-110)
--- NOTE | 2019-12-04 16:20 | PC.NURSE ---
Patient trans[ported to [facility] laborer.
[2019-12-04 20:28] LABS: Glucose Point of Care 149 mg/dL (70-110)
[2019-12-04] MEDS: atorvastatin 40 mg Tablet 20 MG PO (20:55)
[2019-12-05] VITALS (8 sets, daily range): BP systolic 124–144; BP diastolic 73–87; PULSE 65–86; RESP 16–26; TEMP 36.3–36.9; O2SAT 96–99
[2019-12-05 05:24] LABS: Basophils # 0.1 10^3/uL (0.0-0.1); Basophils % 0.7 %; Eosinophils # 0.4 10^3/uL (0.0-0.8); Eosinophils % 5.7 %; Hematocrit 36.4 % (37.0-47.0); Hemoglobin 10.8 g/dL (11.5-15.3); Lymphocytes # 1.9 10^3/uL (0.8-4.8); Lymphocytes % 24.7 %; Mean Corpuscular HGB Conc 29.7 g/dL (30.0-36.0); Mean Corpuscular Hemoglobin 23.9 pg (28.0-34.0); Mean Corpuscular Volume 80.7 fL (81-99); Mean Platelet Volume 12.1 fL (7.4-10.4); Monocytes % 12.8 %; Neutrophils # 4.24 10^3/uL (1.8-7.7); Neutrophils % 55.8 %; Nucleated Red Blood Cells % 0 %; Platelet Count 184 10^3/cmm (130-400); Red Blood Count 4.51 10^6/uL (4.1-5.3); Red Cell Distribution Width 15.8 % (12.1-15.1); White Blood Count 7.6 10^3/uL (4.0-10.0)
[2019-12-05 05:59] LABS: Anion Gap 13.7 (5-19); Blood Urea Nitrogen 24 mg/dL (8-23); Calcium 8.6 mg/dL (8.5-10.5); Carbon Dioxide 31 mmol/L (22-29); Chloride 101 mmol/L (98-107); Glucose 120 mg/dL (65-115); Osmolality Calculated 292 mOsm/kg (285-295); Potassium 3.7 mmol/L (3.5-5.1); Sodium 142 mmol/L (136-145)
[2019-12-05 06:31] LABS: Glucose Point of Care 128 mg/dL (70-110)
[2019-12-05] MEDS: amoxicillin-clav 875-125 mg Tablet 1 TAB PO ×2 (08:41→17:53)
[2019-12-05] MEDS: metoprolol succinate ER (24 HR) 25 mg Tablet PO ×2 (08:41→17:54)
[2019-12-05] MEDS: aspirin 325 mg EC Tablet PO (08:41)
[2019-12-05] MEDS: levothyroxine 150 mcg Tablet 75 MCG PO (08:41)
[2019-12-05] MEDS: pantoprazole 40 mg SDV IVP (08:42)
--- NOTE | 2019-12-05 09:00 | PC.NURSE ---
Removed sutures and right neck central line/ triple lumen. Pressure held to site x 5 minutes. No oozing from site. Dressing applied.
--- NOTE | 2019-12-05 10:51 | P.PN_ITS ---
Subjective Subjective: Interval history: Today she is doing okay. Has been off of oxygen for about half an hour, and does not feel short of breath. No recurrence of nasal bleed so far. Says that she had blown her nose earlier and it was clear. Vitals/I&O/Wt Last Vital Signs Temp 97.4 F L 12/05/19 08:00 Pulse 65 12/05/19 10:43 Resp 19 H 12/05/19 08:00 BP 124/75 12/05/19 08:00 Pulse Ox 96 12/05/19 10:43 12/04/19 12/05/19 12/05/19 22:59 06:59 14:59 Intake Total 600 / 600 240 / 240 Output Total 450 / 1590 Balance 600 / -540 -450 / -990 240 / 240 Weight last 48 hrs Weight 126.24 kg Weight 124.908 kg Physical Exam Const: COMMON NORMALS: no acute distress and patient oriented x3 HENMT: COMMON NORMALS: oropharynx normal Neck/C-Spine: COMMON NORMALS: no JVD OTHER: R IJ CVC appears clean with some crusted blood on the dressing, no surrounding erythema Resp: COMMON NORMALS: normal respiratory effort and clear to auscultation bilaterally AUSCULTATION: clear to auscultation bilaterally OTHER: No adventitious sounds Cardio: COMMON NORMALS: no JVD, regular rhythm, S1 normal heart sound present, S2 normal heart sound present and No murmurs present (Cardio) RHYTHM: regular rhythm HEART SOUNDS: S1 normal heart sound present and S2 normal heart sound present GI: COMMON NORMALS: Normal to inspection, nondistended, normoactive bowel sounds present, Soft to palpation and non-tender PALPATION: Yes Soft to palpa tion Extremity: COMMON NORMALS: no joint enlargement and no pedal edema GENERAL: Yes edema (trace pitting edema) Neuro: COMMON NORMALS: patient oriented x3 and moves all extremities Skin: COMMON NORMALS: no rashes or lesions noted GENERAL SKIN EXAM: no rashes or lesions noted Urinary Catheter Management^: Arteaga: Cath Placed During This Visit: yes Reason for Continuing Indwelling Catheter: Accurate Measurement of Urinary Output in Critically Ill Patients Urinary Catheter Date of Insertion: 12/01/19 Urinary Catheter Time of Insertion: 14:37 Data : 12/05/19 04:15 12/05/19 04:15 Micro: Microbiology 12/01/19 14:30 Urine Culture - Final Urine,Clean Catch Escherichia fergusonii A&P Assessment and plan (1) Acute respiratory failure: Improving. Appears to be weaning down to room air quite well today. Hold off further IV Lasix. Today will start on 40 mg oral twice a day like she takes at home. Monitor TAMIKA, volume status. Attempt to keep off oxygen if tolerating as this appears to be contributing to some nasal bleeding. Nasal bleed has so far resolved today. She denies that this is a recurrent issue at home. If happens again, may need additional referral to ENT. Remove right IJ CVC. Zosyn stopped. Augmentin. DC Arteaga. Mobilize. No PE seen on CTA. Lower extremity Dopplers without any evidence of DVT. Status: Acute Qualifiers: Respiratory failure complication: hypoxia Qualified Code(s): J96.01 - Acute respiratory failure with hypoxia (2) Congestive heart failure: As above. Status: Acute Qualifiers: Heart failure chronicity: acute on chronic Heart failure type: combined systolic and diastolic Qualified Code(s): I50.43 - Acute on chronic combined systolic (congestive) and diastolic (congestive) heart failure (3) Ventricular tachycardia: On telemetry occasional PVCs with compensatory pauses. No ventricular tachycardia noted. Tentative plan for possible angiography tomorrow which had to be delayed due to epistaxis. This so far appears to have resolved today. Monitor. So far doing well on metoprolol. Continue telemetry monitoring. As she is receiving additional dose of Lasix today, will give additional K. Magnesium not low. Status: Acute (4) Cardiogenic shock: Resolved. Status: Acute (5) UTI (urinary tract infection): E missyonii. Resistant to ampicillin, quinolones, tetracycline, Bactrim. Augmentin. Remove Arteaga. Status: Acute (6) Leukocytosis: Resolved. Status: Acute (7) SIRS (systemic inflammatory response syndrome): Resolved. Status: Acute Additional A&P Information Episode of epistaxis: Possibly secondary to some mucosal drying. Today appears resolved she is weaned down to room air on oxygen. Lovenox has been held. Only SCD for DVT prophylaxis. This is not a recurrent issue at home. If becoming recurrent may need additional referral to ENT. Diabetes mellitus: mild insulin sliding scale, Hba1c 7.4. Continue statin. Consistent carb diet. Attestations Medical Necessity Statement*: Continue admission for assessment of management of CHF, ventricular arrhythmia, assessment for coronary disease after resolution of epistaxis. Coding Level of Care Code Acute Division Roadmaster for Krystal Loved Diagnoses Acute respiratory failure J96.01 Respiratory failure complication: hypoxia Congestive heart failure I50.43 Heart failure chronicity: acute on chronic Heart failure type: combined systolic and diastolic Ventricular tachycardia I47.2 Cardiogenic shock R57.0 UTI (urinary tract infection) N39.0 Leukocytosis D72.829 SIRS (systemic inflammatory response syndrome) R65.10
[2019-12-05 10:53] LABS: Glucose Point of Care 183 mg/dL (70-110)
--- NOTE | 2019-12-05 13:44 | PC.NURSE ---
LHC scheduled The patient was scheduled Tuesday12/07/19 at [address] Cespedes. Huong in scheduling and DAYNE Rudolph RN were notified.
[2019-12-05] MEDS: FUROsemide 40 mg Tablet PO ×2 (14:03→17:54)
[2019-12-05 17:20] LABS: Glucose Point of Care 119 mg/dL (70-110)
[2019-12-05 20:07] LABS: Glucose Point of Care 202 mg/dL (70-110)
--- NOTE | 2019-12-05 20:17 | PM.PN ---
Subjective Subjective: Interval history: No chest pain, feels well. continues to have frequent PVC's Medications: Reviewed: Yes Vitals/I&O/Wt Last Vital Signs Temp 98.5 F 12/05/19 19:37 Pulse 86 12/05/19 19:37 Resp 26 H 12/05/19 19:37 BP 144/87 12/05/19 19:37 Pulse Ox 97 12/05/19 19:37 12/05/19 12/05/19 12/05/19 06:59 14:59 22:59 Intake Total 480 / 480 120 / 600 Output Total 450 / 1590 Balance -450 / -990 480 / 480 120 / 600 Weight last 48 hrs Weight 278 lb 5 oz Weight 275 lb 6 oz Physical Exam Narrative: EXAM NARRATIVE: GENERAL: obese woman lying in bed in no acute distress HEENT: Pupils equal round reactive to light. No pallor or icterus. NECK: central trachea, JVD not appreciated, short thick neck. CARDIOVASCULAR SYSTEM: S1-S2, irregular with frequent ectopy. No S3 or S4 present. No murmur rubs or gallops. RESPIRATORY SYSTEM: Chest clear to auscultation anteriorly, decreased breath sounds at bases ABDOMEN: Soft, obese, nontender and nondistended. Normal bowel sounds present. EXTREMITIES: No cyanosis or clubbing. trace edema (improved). 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 No focal neurological deficits. Urinary Catheter Management^: Arteaga: Cath Placed During This Visit: yes, but has since been removed by the nurse Reason for Continuing Indwelling Catheter: Other Urinary Catheter Date of Insertion: 12/01/19 Urinary Catheter Time of Insertion: 14:37 Date Urinary Catheter Removed: 12/05/19 Time Urinary Catheter Discontinued: 10:00 Data : 12/05/19 04:15 12/05/19 04:15 A&P Assessment and plan (1) Acute respiratory failure: Acute hypoxic hypercapnic respiratory failure in setting of pulmonary edema -Patient has been successfully extubated this morning. -There was initially concern for pulmonary embolism that has since been ruled out. -resolved, currently on oxygen via nasal canula. Status: Acute Qualifiers: Respiratory failure complication: hypoxia Qualified Code(s): J96.01 - Acute respiratory failure with hypoxia (2) Pulmonary edema: Flash pulmonary edema; Unclear etiology. -Decompensated CHF leading to ischemia and runs of ventricular arrhythmia is a possibility. - This may possibly have contributed to flash pulmonary edema. -resolved with diuresis. Status: Acute Qualifiers: Chronicity: acute Qualified Code(s): J81.0 - Acute pulmonary edema (3) Ventricular tachycardia: Frequent PVCs and runs of nonsustained ventricular tachycardia -Off of amiodarone drip for >48 hr, No NSVT on telemetry. -continue metoprolol succinate to 25 mg twice a day. -Keep potassium more than 4 and magnesium more than 2. Status: Acute (4) Congestive heart failure: Acute on chronic congestive heart failure; possibly there is a drop in LV systolic function however the baseline is not known. -No regional wall motion abnormality on technically difficult transthoracic echo from this visit. -Etiology of decompensation could be underlying infection with UTI and possible pulmonary source (?aspiration). -Plan for coronary angiogram later tomorrow afternoon . -lasix 40 mg PO BID. Status: Acute Qualifiers: Heart failure chronicity: acute on chronic Heart failure type: combined systolic and diastolic Qualified Code(s): I50.43 - Acute on chronic combined systolic (congestive) and diastolic (congestive) heart failure (5) Non-ST elevation OK (NSTEMI): Type II in setting of pulmonary edema, hypoxia. -On aspirin and statin. Status: Acute Additional A&P Information UTI-on abx per primary team Possible PNA- on Abx per primary team Transaminitis- resolved Acute kidney injury - resolved Hypotension: 2/2 medications and post intubation; resolved Acute respiratory acidosis: Resolved history of coronary artery disease Hypothyroidism Obesity Hypertension Hyperlipidemia Diabetes mellitus type 2 Thank you for allowing me to participate in patient's care please feel free to call with questions or concerns. Attestations Medical Necessity Statement*: Needs hospital stay for CHF, frequent PVC's and UTI. Coding Level of Care Code Acute Project Superintendent for Krystal Humphries Diagnoses Acute respiratory failure J96.01 Respiratory failure complication: hypoxia Pulmonary edema J81.0 Chronicity: acute Ventricular tachycardia I47.2 Congestive heart failure I50.43 Heart failure chronicity: acute on chronic Heart failure type: combined systolic and diastolic Non-ST elevation OK (NSTEMI) I21.4
[2019-12-05] MEDS: atorvastatin 40 mg Tablet 20 MG PO (20:44)
[2019-12-06] VITALS (19 sets, daily range): BP systolic 108–150; BP diastolic 63–90; PULSE 63–102; RESP 1–26; TEMP 36.4–36.8; O2SAT 93–100
[2019-12-06 04:16] LABS: Basophils # 0.1 10^3/uL (0.0-0.1); Basophils % 0.8 %; Eosinophils # 0.4 10^3/uL (0.0-0.8); Eosinophils % 5.6 %; Hematocrit 35.5 % (37.0-47.0); Hemoglobin 10.7 g/dL (11.5-15.3); Lymphocytes # 1.8 10^3/uL (0.8-4.8); Lymphocytes % 22.9 %; Mean Corpuscular HGB Conc 30.1 g/dL (30.0-36.0); Mean Corpuscular Hemoglobin 24.3 pg (28.0-34.0); Mean Corpuscular Volume 80.5 fL (81-99); Mean Platelet Volume 11.9 fL (7.4-10.4); Monocytes % 13.3 %; Neutrophils # 4.47 10^3/uL (1.8-7.7); Nucleated Red Blood Cells % 0 %; Platelet Count 177 10^3/cmm (130-400); Red Blood Count 4.41 10^6/uL (4.1-5.3); Red Cell Distribution Width 15.7 % (12.1-15.1); White Blood Count 7.8 10^3/uL (4.0-10.0)
[2019-12-06 04:39] LABS: Blood Urea Nitrogen 27 mg/dL (8-23); Calcium 8.2 mg/dL (8.5-10.5); Carbon Dioxide 29 mmol/L (22-29); Chloride 105 mmol/L (98-107); Glucose 131 mg/dL (65-115); Osmolality Calculated 291 mOsm/kg (285-295); Sodium 141 mmol/L (136-145)
[2019-12-06 06:18] LABS: Glucose Point of Care 134 mg/dL (70-110)
[2019-12-06] MEDS: pantoprazole DR 40 mg Tablet PO (08:17)
[2019-12-06] MEDS: aspirin 325 mg EC Tablet PO (08:17)
[2019-12-06] MEDS: amoxicillin-clav 875-125 mg Tablet 1 TAB PO ×2 (08:17→18:05)
[2019-12-06] MEDS: levothyroxine 150 mcg Tablet 75 MCG PO (08:17)
[2019-12-06] MEDS: FUROsemide 40 mg Tablet PO ×2 (08:18→15:59)
[2019-12-06] MEDS: metoprolol succinate ER (24 HR) 25 mg Tablet PO ×2 (08:18→18:05)
--- NOTE | 2019-12-06 09:03 | PC.NURSE ---
0750 dr light at bedside for discussion of POC
--- NOTE | 2019-12-06 09:05 | PC.SOCIAL ---
IMM Updated Page 2 of IMM updated and given to patient. Initialed, dated, and timed and placed back in chart.
--- NOTE | 2019-12-06 09:11 | PC.NURSE ---
instructions from Dr alves to feed patient a light breakfast due to change in procedure time will continue NPO after light breakfast
--- NOTE | 2019-12-06 09:42 | PM.PN ---
Subjective Subjective: Interval history: She is doing well. No CP, SOB. No nose bleed. Vitals/I&O/Wt Last Vital Signs Temp 97.6 F 12/06/19 07:44 Pulse 72 12/06/19 07:44 Resp 12 12/06/19 07:44 BP 135/76 12/06/19 07:44 Pulse Ox 96 12/06/19 07:44 12/05/19 12/06/19 12/06/19 22:59 06:59 14:59 Intake Total 240 / 720 Balance 240 / 720 Weight last 48 hrs Weight 108.545 kg Weight 126.24 kg Physical Exam Const: COMMON NORMALS: no acute distress and patient oriented x3 HENMT: COMMON NORMALS: oropharynx normal Neck/C-Spine: COMMON NORMALS: no JVD OTHER: R IJ CVC removed Resp: COMMON NORMALS: normal respiratory effort and clear to auscultation bilaterally AUSCULTATION: clear to auscultation bilaterally and diminished lung sounds OTHER: No adventitious sounds Cardio: COMMON NORMALS: no JVD, regular rhythm, S1 normal heart sound present, S2 normal heart sound present and No murmurs present (Cardio) RHYTHM: regular rhythm HEART SOUNDS: S1 normal heart sound present and S2 normal heart sound present GI: COMMON NORMALS: Normal to inspection, nondistended, normoactive bowel sounds present, Soft to palpation and non-tender PALPATION: Yes Soft to palpation Extremity: COMMON NORMALS: no joint enlargement and no pedal edema GENERAL: Yes edema (trace pitting edema) Neuro: COMMON NORMALS: patient oriented x3 and moves all extremities Skin: COMMON NORMALS: no rashes or lesions noted GENERAL SKIN EXAM: no rashes or lesions noted Urinary Catheter Management^: Arteaga: Cath Placed During This Visit: yes, but has since been removed by the nurse Reason for Continuing Indwelling Catheter: Other Urinary Catheter Date of Insertion: 12/01/19 Urinary Catheter Time of Insertion: 14:37 Date Urinary Catheter Removed: 12/05/19 Time Urinary Catheter Discontinued: 10:00 Data : 12/06/19 03:54 12/06/19 03:54 A&P Assessment and plan (1) Congestive heart failure: Additional evaluation by coronary artery gram today to exclude coronary disease as contributing cause. Continue oral Lasix. Arteaga catheter was discontinued. Status: Acute Qualifiers: Heart failure chronicity: acute on chronic Heart failure type: combined systolic and diastolic Qualified Code(s): I50.43 - Acute on chronic combined systolic (congestive) and diastolic (congestive) heart failure (2) Ventricular tachycardia: On telemetry occasional PVCs with compensatory pauses. No ventricular tachycardia noted. Tentative plan for possible angiography which had to be delayed due to epistaxis. This so far appears to have resolved today. Monitor. So far doing well on metoprolol. Telemetry monitoring. Status: Acute (3) Acute respiratory failure: Weaned off oxygen and has been doing well without. No recurrence of nasal bleed. If happens again, may need additional referral to ENT. Zosyn stopped. Augmentin with reported possibility of aspiration, although infectious cause appears to be less likely. Possibly secondary to CHF, flash pulmonary edema. No PE seen on CTA. Lower extremity Dopplers without any evidence of DVT. Status: Acute Qualifiers: Respiratory failure complication: hypoxia Qualified Code(s): J96.01 - Acute respiratory failure with hypoxia (4) Cardiogenic shock: Resolved. Right IJ CVC removed. Status: Acute (5) UTI (urinary tract infection): E fergusonii. Resistant to ampicillin, quinolones, tetracycline, Bactrim. Augmentin. Removed Arteaga. Status: Acute (6) Leukocytosis: Resolved. Status: Acute (7) SIRS (systemic inflammatory response syndrome): Resolved. Status: Acute Additional A&P Information Episode of epistaxis: Resolved. Possibly secondary to some mucosal drying. Today appears resolved she is weaned down to room air on oxygen. Lovenox has been held. Only SCD for DVT prophylaxis. This is not a recurrent issue at home. If becoming recurrent may need additional referral to ENT. Diabetes mellitus: mild insulin sliding scale, Hba1c 7.4. Continue statin. Consistent carb diet. Attestations Medical Necessity Statement*: Continue admission for assessment of management of CHF, ventricular arrhythmia. Coding Level of Care Code Acute Corporate Pilot for [facility] Fwd Exam Comprehensive Diagnoses Congestive heart failure I50.43 Heart failure chronicity: acute on chronic Heart failure type: combined systolic and diastolic Ventricular tachycardia I47.2 Acute respiratory failure J96.01 Respiratory failure complication: hypoxia Cardiogenic shock R57.0 UTI (urinary tract infection) N39.0 Leukocytosis D72.829 SIRS (systemic inflammatory response syndrome) R65.10
[2019-12-06 11:17] LABS: Glucose Point of Care 229 mg/dL (70-110)
--- NOTE | 2019-12-06 11:36 | PC.NURSE ---
verified with dr alves if he wanted patient to have noon insulin due to patient being NPO instructions given to hold this dose due to NPO status
--- NOTE | 2019-12-06 15:40 | PC.NURSE ---
spoke with dr Cespedes about pre procedure medications instructions to given Benadryl 25 mg po start NS @ 50 ML/hr
[2019-12-06] MEDS: diphenhydrAMINE 25 mg Capsule PO (15:59)
[2019-12-06] MEDS: sodium chloride 0.9% 1,000 ML 50 ML IV (16:00)
--- NOTE | 2019-12-06 16:33 | PC.NURSE ---
patient off unit for angiogram at this time
--- NOTE | 2019-12-06 16:34 | XACV_ITS ---
Exam Room: [facility] Ht: 168 cm Wt: 108 kg BSA: 2.30 m2 Gender: Female : 1945 Any Known Allergies: Other Exam Priority: Routine Procedure(s): Procedure Description: Diagnostic procedure Procedure Description: Coronary Angiography Procedure Description: Pressure Wire Diagnostic Cath Status: Elective Diagnostic Findings LM has 0% stenosis. RCA has 0% stenosis. pLAD: Mild 40% stenosis, SONIYA: 3 flow. Proximal Circumflex Coronary Artery: Moderate 60% stenosis, SONIYA: 3 flow, FFR performed: ratio is 0.94. Coronary angiography shows right dominance. PCI Status: Urgent PCI Indication: Other Interventional Findings FFR: After equalizing the distal and proximal pressure of FFR wire proximal to the lesion, prox LCx lesion was crossed with FFR wire. IV adenosine at rate of 140 Mcg/min was started. Patient did not compliant of any symptoms, at then end of two minutes FFR was recorded as 0.94, which is not significant . Conclusions There is moderate coronary artery disease with two vessel disease. Indication for coronary angiogram: Arrhythmia /ventricular tachycardia. Recommendations 1-Return to inpatient for close monitoring and routine cath care 2-Risk factor modification for secondary prevention 3-Statin and aspirin 81 mg life--long, if tolerated 4-Optimize medical manage 5-Follow up with Dr. Hudson in four weeks and your primary care in 10 days . Pressures Phase:Rest AO : 93 mmHg / 55 mmHg ( 74 mmHg ) @ 12:13:00 PM Clinical Evaluation EBL: 5mL-10mL Procedural Details Procedure Consent Obtained. Pre-Procedure Time Out. Identified patient by full name and date of as verbalized by the patient/guarantor. Does the consent match the physician's order: Yes. Accurate & Complete Informed Consent: Yes. Inpatient/Outpatient History & Physical on Chart: Yes. If H&P is completed, is and addenduem needed: No; If yes, is the addendum complete: N/A. Visualize and Verify Site with Patient/Guarantor: N/A. Relevant Radiology Images available: Yes. Pre-op teaching completed and patient verbalized understanding. The risks, benefits, and alternatives of sedation and/or procedure were discussed by physician. The patient agrees to continue. Procedure started. Correct patient, site and procedure confirmed by cath team. Current diagnosis: Chest Pain. PERRLA. 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 Lungs clear x 5 lobes. IV Site on Arrival: 20 gauge in the left anticubital. IV Fluids: 0.9% NaCl at KVO. 0 mL infused prior to laboratory operations coordinator. Pre Procedural Pulses: bilateral dorsalis pedis was 2+. Pre Procedural Pulses: bilateral posterior tibial was 2+. Pre Procedural Pulses: bilateral radial was 3+. Oxygen started at 2liters/min via nasal canula. bilateral groins was prepped with chloroprep then draped in the usual sterile fashion. right radial was prepped with chloroprep then draped in the usual sterile fashion. Physician notified. Baseline sample Acquired. HR: 72 BPM. Equipment: 6F - Radial. ACIST Manifold Kit Model BT 2000. Cardiac Cath Pack. Heparinized Saline (2 units/mL), 1000 mL bag. Physician arrived. Physician scrubbed in. Immediate Pre-Procedure Time Out. Correct Patient: Yes; Correct Procedure: Yes; Correct Site: Yes; Correct Patient Position: Yes; Correct Supplies: Yes; Dried Flammable Prep: Yes; Blood Products Available: No;. Lidocaine 1% infiltrated to the right radial. Arterial access obtained. A 5 hungarian TIG catheter in over wire. Multiple views taken of left coronary artery. Catheter redirected to the RCA. Multiple views taken of right coronary artery. Catheter out. 6 hungarian XB 3 guide catheter was inserted over the wire. Pressure wire inserted. Wire out. Wire reinserted. An FFR value of 0.94 was obtained for a lesion located at Prox CX. Guide out. Medication's Wasted: Lidocaine 1% = 16 mL. Medication's Wasted: Heparin = 1000 units. Medication's Wasted: Adenosine 59 mg. Medication's Wasted: Nitro = 49.8 mg. Medication's Wasted: Fentanyl 50mcg. Medication's Wasted: Versed 1 mg. Total IV fluids: 75 mL. TR band placed. Hemostasis obtained. A TR Band was successful obtaining hemostatsis at the Right Radial artery insertion site. PERRLA. 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 No VTE prophylaxis required. Contrast type used: Visipaque 320 mgI/mL, 500 mL bottle. Post-op diagnosis: Cardiomyopathy. Complications: None. Estimated blood loss: 5mL-10mL. Procedure completed. Vital chart was stopped. Patient transferred by wheelchair to 1st floor. Site: Right Radial artery Sheath Size: 6 Fr Hemostasis Method: TR Band Hemostasis Success: Successful Procedure Medications Start: 4:54 PM Stop: 4:54 PM Medication: Fentanyl Amount: 50 mcg Route: I.V. Start: 5:01 PM Stop: 5:01 PM Medication: Versed Amount: 1 mg Route: I.V. Start: 5:10 PM Stop: 5:10 PM Medication: Nitrogylcerin Amount: 200 mcg Route: I.A. Start: 5:10 PM Stop: 5:10 PM Medication: Versed Amount: 1 mg Route: I.V. Start: 5:13 PM Stop: 5:13 PM Medication: Heparin Amount: 5000 units Route: I.V. Start: 5:25 PM Stop: 5:25 PM Medication: Versed Amount: 1 mg Route: I.V. I, the attending physician, have reviewed and verified all procedure medications. Yes, all medications given per verbal order History/Risk Factors Hypertension: Yes Dyslipidemia: No Diabetic Therapy: Diet Peripheral Arterial Disease (PAD): No Myocardial Infarction (MN): Yes Obesity: Yes Renal Disease: No Tobacco Use: Never Prior Interventions PCI: Yes CABG: No Valve Surgery: No Report Signatures Finalized by:Kenn Cespedes MD on 12/19/2019 6:54:08 PM
--- NOTE | 2019-12-06 17:39 | PC.NURSE ---
Pt is off the unit.
[2019-12-06 18:03] LABS: Glucose Point of Care 104 mg/dL (70-110)
--- NOTE | 2019-12-06 18:23 | PC.NURSE ---
1800 patient back in room from procedure. Tr band in place to right wrist patient educated on do's and don't's after procedure. patient verbalized understanding.
[2019-12-06] MEDS: atorvastatin 40 mg Tablet 20 MG PO (20:17)
--- NOTE | 2019-12-06 20:44 | PC.NURSE ---
Patient s/p [facility] with right radial access and TR band in place. Initiated air removal at 1915 removing 2-3ml of air every 15-20min. TR band removed at this time. No s/s of bleeding or hematoma formation observed. Cleaned site and placed folded 2x2 with bio-occlusive dressing. Instructed patient on site care and restrictions. Patient verbalized complete understanding.
[2019-12-07] VITALS (33 sets, daily range): BP systolic 117–141; BP diastolic 63–85; PULSE 63–90; RESP 10–24; TEMP 36.4–37.1; O2SAT 95–99
[2019-12-07 04:48] LABS: Basophils # 0.1 10^3/uL (0.0-0.1); Eosinophils # 0.5 10^3/uL (0.0-0.8); Eosinophils % 7.4 %; Hematocrit 37.2 % (37.0-47.0); Lymphocytes # 1.6 10^3/uL (0.8-4.8); Mean Corpuscular HGB Conc 29.6 g/dL (30.0-36.0); Mean Corpuscular Hemoglobin 23.8 pg (28.0-34.0); Mean Corpuscular Volume 80.5 fL (81-99); Mean Platelet Volume 11.9 fL (7.4-10.4); Monocytes # 0.9 10^3/uL (0.2-0.9); Neutrophils # 3.83 10^3/uL (1.8-7.7); Neutrophils % 55.3 %; Nucleated Red Blood Cells % 0 %; Platelet Count 184 10^3/cmm (130-400); Red Blood Count 4.62 10^6/uL (4.1-5.3); Red Cell Distribution Width 15.8 % (12.1-15.1); White Blood Count 6.9 10^3/uL (4.0-10.0)
[2019-12-07 05:06] LABS: Anion Gap 12.6 (5-19); Blood Urea Nitrogen 28 mg/dL (8-23); Calcium 8.7 mg/dL (8.5-10.5); Carbon Dioxide 27 mmol/L (22-29); Chloride 105 mmol/L (98-107); Glucose 129 mg/dL (65-115); Osmolality Calculated 291 mOsm/kg (285-295); Potassium 3.6 mmol/L (3.5-5.1); Sodium 141 mmol/L (136-145)
[2019-12-07 06:14] LABS: Glucose Point of Care 251 mg/dL (70-110)
[2019-12-07 06:20] LABS: Glucose Point of Care 129 mg/dL (70-110)
--- NOTE | 2019-12-07 08:19 | PM.PN ---
Subjective Subjective: Interval history: Patient underwent coronary angiogram yesterday evening and was found to have px LAD 60-65% stenosis with FFR of 0.95. Patent LCx stent. She feels well and is ready to go home. Medications: Reviewed: Yes Medication Review Details: Current Medications Acetaminophen (Tylenol) 650 mg PO Q6H PRN PRN Reason: MILD PAIN Hydrocodone Bitart/Acetaminophen ([place] 5-325 Mg) 1 tab PO Q4H PRN PRN Reason: PAIN Al Hydrox/Mg Hydrox/Simethicone (Maalox) 30 ml PO Q15M PRN PRN Reason: INDIGESTION Alprazolam (Xanax) 0.25 mg PO TID PRN PRN Reason: ANXIETY Amoxicillin/Clavulanate Potassium (Augmentin 875-125 Mg) 1 tab PO BID [facility]; Protocol Last Admin: 12/06/19 18:05 Dose: 1 tab Documented by: Aspirin (Aspirin Ec) 325 mg PO DAILY [facility] Last Admin: 12/06/19 08:17 Dose: 325 mg Documented by: Atorvastatin Calcium (Lipitor) 20 mg PO BEDTIME [facility] Last Admin: 12/06/19 20:17 Dose: 20 mg Documented by: Atropine Sulfate (Atropine) 0.5 mg IVP PRN PRN PRN Reason: Symptomatic bradycardia Dextrose (D50w) 25 ml IVP ONCE PRN; Protocol PRN Reason: hypoglycemia protocol Dextrose (D50w) 50 ml IVP PRN PRN; Protocol PRN Reason: hypoglycemia protocol Fentanyl (Sublimaze) 50 mcg IVP PRN PRN PRN Reason: Prior to sheath removal Furosemide (Lasix) 40 mg PO BID@16 [facility] Last Admin: 12/06/19 15:59 Dose: 40 mg Documented by: Glucagon (Glucagen) 1 mg IM ONCE PRN; Protocol PRN Reason: Adult Acute Hypoglycemia Prot. Dextrose (D5w) 500 mls @ 100 mls/hr IV ONCE PRN; Protocol PRN Reason: Adult Acute Hypoglycemia Prot Sodium Chloride (Sodium Chloride 0.9%) 1,000 mls @ 50 mls/hr IV .Q20H ONE Stop: 12/07/19 11:42 Last Admin: 12/06/19 16:00 Dose: 50 mls/hr Documented by: Insulin Aspart (Novolog) 0 unit SUBCUT &BEDTIME [facility]; Protocol Last Admin: 12/07/19 07:31 Dose: Not Given Documented by: Lanolin (Lanolin Oint) 1 applic TOPICAL PRN PRN PRN Reason: DRYNESS Last Admin: 12/03/19 01:38 Dose: 1 applic Documented by: Levothyroxine Sodium (Synthroid) 75 mcg PO DAILY [facility] Last Admin: 12/06/19 08:17 Dose: 75 mcg Documented by: Magnesium Hydroxide (Milk Of Magnesia) 30 ml PO DAILY PRN PRN Reason: CONSTIPATION Metoprolol Succinate (Toprol Xl) 25 mg PO BID [facility] Last Admin: 12/06/19 18:05 Dose: 25 mg Documented by: Naloxone HCl (Narcan) 0.1 mg IVP Q2M PRN PRN Reason: RESPIRATORY RATE < 8/MIN Nitroglycerin (Nitrostat) 0.4 mg SUBLINGUAL Q5M PRN PRN Reason: CHEST PAIN Ondansetron HCl (Zofran) 4 mg IVP Q6H PRN PRN Reason: NAUSEA AND VOMITING Pantoprazole Sodium (Protonix) 40 mg PO DAILY [facility] Last Admin: 12/06/19 08:17 Dose: 40 mg Documented by: Temazepam (Restoril) 15 mg PO BEDTIME PRN PRN Reason: INSOMNIA Vitals/I&O/Wt Last Vital Signs Temp 97.6 F 12/07/19 07:33 Pulse 71 12/07/19 07:33 Resp 20 H 12/07/19 07:33 BP 139/85 12/07/19 07:33 Pulse Ox 99 12/07/19 07:33 12/06/19 12/07/19 12/07/19 22:59 06:59 14:59 Intake Total 720 / 720 Balance 720 / 720 Weight last 48 hrs Weight 240 lb 1.6 oz Weight 239 lb 4.8 oz Physical Exam Narrative: EXAM NARRATIVE: GENERAL: obese woman lying in bed in no acute distress HEENT: Pupils equal round reactive to light. No pallor or icterus. NECK: central trachea, JVD not appreciated, short thick neck. CARDIOVASCULAR SYSTEM: S1-S2, irregular with frequent ectopy. No murmur rubs or gallops. RESPIRATORY SYSTEM: Chest clear to auscultation anteriorly, decreased breath sounds at bases EXTREMITIES: No cyanosis or clubbing. No edema. 2+ radial, No hematoma. 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 No focal neurological deficits. Urinary Catheter Management^: Arteaga: Cath Placed During This Visit: yes, but has since been removed by the nurse Reason for Continuing Indwelling Catheter: Other Urinary Catheter Date of Insertion: 12/01/19 Urinary Catheter Time of Insertion: 14:37 Date Urinary Catheter Removed: 12/05/19 Time Urinary Catheter Discontinued: 10:00 Data : 12/07/19 04:10 12/07/19 04:10 Micro: Microbiology 12/01/19 15:30 Blood Culture - Final Blood NO GROWTH AFTER 5 DAYS 12/01/19 15:25 Blood Culture - Final Blood NO GROWTH AFTER 5 DAYS A&P Assessment and plan (1) Acute respiratory failure: Acute hypoxic hypercapnic respiratory failure in setting of pulmonary edema -Patient has been successfully extubated this morning. -There was initially concern for pulmonary embolism that has since been ruled out. -resolved, currently on oxygen via nasal canula. Status: Acute Qualifiers: Respiratory failure complication: hypoxia Qualified Code(s): J96.01 - Acute respiratory failure with hypoxia (2) Pulmonary edema: Flash pulmonary edema; Unclear etiology. -Decompensated CHF leading to ischemia and runs of ventricular arrhythmia is a possibility. - This may possibly have contributed to flash pulmonary edema. -resolved with diuresis. Status: Acute Qualifiers: Chronicity: acute Qualified Code(s): J81.0 - Acute pulmonary edema (3) Ventricular tachycardia: Frequent PVCs and runs of nonsustained ventricular tachycardia -Off of amiodarone drip for >48 hr, No NSVT on telemetry.PVC's noted. -continue metoprolol succinate 50 daily on discharge. f/u echo in 3 months. -Keep potassium more than 4 and magnesium more than 2. Status: Acute (4) Congestive heart failure: Acute on chronic congestive heart failure; possibly there is a drop in LV systolic function however the baseline is not known. -No regional wall motion abnormality on technically difficult transthoracic echo from this visit. -Etiology of decompensation could be underlying infection with UTI and possible pulmonary source (?aspiration). -No severe stenosis on coronary angiogram. continue metoprolol succinate 50 mg daily and start losartan 25 mg daily -lasix 40 mg PO BID with potassium. [facility]. -f/u with Ms. Terrazas or in 1 week for labs/site check. -f/u with me in 6 weeks. Status: Acute Qualifiers: Heart failure chronicity: acute on chronic Heart failure type: combined systolic and diastolic Qualified Code(s): I50.43 - Acute on chronic combined systolic (congestive) and diastolic (congestive) heart failure (5) Non-ST elevation ID (NSTEMI): Type II in setting of pulmonary edema, hypoxia. h/o CAD -On aspirin and statin. Status: Acute Additional A&P Information UTI-on abx per primary team Possible PNA- on Abx per primary team Transaminitis- resolved Acute kidney injury - resolved Hypotension: 2/2 medications and post intubation; resolved Acute respiratory acidosis: Resolved history of coronary artery disease : continue ASA and statin Hypothyroidism Obesity Hypertension Hyperlipidemia Diabetes mellitus type 2 Thank you for allowing me to participate in patient's care please feel free to call with questions or concerns. Attestations Medical Necessity Statement*: stable to be discharged form cardiac standpoint Coding Level of Care Code Acute [place] for Krystal Humphries Diagnoses Acute respiratory failure J96.01 Respiratory failure complication: hypoxia Pulmonary edema J81.0 Chronicity: acute Ventricular tachycardia I47.2 Congestive heart failure I50.43 Heart failure chronicity: acute on chronic Heart failure type: combined systolic and diastolic Non-ST elevation ID (NSTEMI) I21.4
[2019-12-07] MEDS: amoxicillin-clav 875-125 mg Tablet 1 TAB PO (08:28)
[2019-12-07] MEDS: FUROsemide 40 mg Tablet PO (08:28)
[2019-12-07] MEDS: metoprolol succinate ER (24 HR) 25 mg Tablet PO (08:28)
[2019-12-07] MEDS: aspirin 325 mg EC Tablet PO (08:28)
[2019-12-07] MEDS: levothyroxine 150 mcg Tablet 75 MCG PO (08:28)
[2019-12-07] MEDS: pantoprazole DR 40 mg Tablet PO (08:28)
--- NOTE | 2019-12-07 10:27 | P.DS_ITS ---
Discharge Providers Date of Admission: 12/01/19 15:20 Date of Discharge: December 07, 2019 Attending Provider at Admission: Alice Marion MD Attending Provider at Discharge: Brant Levy Primary Care Provider: Hiren Ferreira Jr, MD Diagnoses at Discharge Discharge Diagnosis (1) Congestive heart failure: Status: Acute Qualifiers: Heart failure chronicity: acute on chronic Heart failure type: combined systolic and diastolic Qualified Code(s): I50.43 - Acute on chronic combined systolic (congestive) and diastolic (congestive) heart failure (2) Ventricular tachycardia: Status: Acute (3) Acute respiratory failure: Status: Acute Qualifiers: Respiratory failure complication: hypoxia Qualified Code(s): J96.01 - Acute respiratory failure with hypoxia (4) Pulmonary edema: Status: Acute Qualifiers: Chronicity: acute Qualified Code(s): J81.0 - Acute pulmonary edema (5) Non-ST elevation IA (NSTEMI): Status: Acute (6) UTI (urinary tract infection): Status: Acute (7) Cardiogenic shock: Status: Acute (8) SIRS (systemic inflammatory response syndrome): Status: Acute (9) Leukocytosis: Status: Acute (10) Epistaxis: Status: Acute (11) Diabetes: Status: Acute Reason for Visit Reason for Visit: SHORT OF BREATH Hospital Course Hospital Course: Very pleasant 74-year-old lady with history of coronary disease, diabetes, HTN, HLD, prior IA with stenting, obesity, osteoarthritis was admitted after presenting with shortness of breath, noted in respiratory distress, EKG in ER showing intermittent ventricular fibrillation, subsequently sinus bradycardia for which she received atropine, subsequently with rapidly worsening respiratory distress requiring intubation and mechanical ventilatory support. Became hypotensive requiring pressor infusion. Rapid COVID-19 antigen was negative. CTA chest without finding of PE. Was empirically started on Zo syn due to possibility of pneumonia, although this is been less likely. Subsequently also with noted urinary tract infection, culture eventually growing E fergusonii. Cardiomegaly with bilateral pleural effusions, bilateral pulmonary groundglass opacities seen on CTA suspected secondary to acute CHF, flash pulmonary edema. Echocardiogram showed severely decreased left jugular systolic function, EF 25-30%, global hypokinesis with unknown prior baseline. She was treated with IV diuretics. Amiodarone infusion was administered for episodes of V. fib/V. tach. Subsequently weaned off, and she was transitioned to metoprolol with which she did well, with some intermittent residual PVCs only. She was weaned off mechanical ventilatory support, and extubated successfully initially requiring some nasal cannula oxygen support. She continued to diurese well. Renal function remained stable. There were no signs of ongoing sepsis. She was eventually switched to oral antibiotic, completing the course with Augmentin, oral diuretics. On improvement of respiratory and hemodynamic as well as volume status, was assessed by coronary angiography, although this did have to be delayed temporarily due to episode of epistaxis. This is not a recurrent issue, however, please follow-up with her in office with regards to this. Consider ENT referral if needed. Subsequent coronary angiography showed 60-65% stenosis of LAD, with FFR 0.95. Patent LCx stent. No intervention was undertaken. She has been feeling well, has been ambulatory, has not required any oxygen, although home O2 evaluation is arranged on discharge. She is feeling strong and happy to return home to follow-up with cardiology in office. Physical Exam Const: COMMON NORMALS: no acute distress and patient oriented x3 OTHER: She is sitting at the side of the bed, in good spirits, pleasant, conversant. HENMT: COMMON NORMALS: oropharynx normal Neck/C-Spine: COMMON NORMALS: no JVD Resp: COMMON NORMALS: normal respiratory effort and clear to auscultation bilaterally AUSCULTATION: clear to auscultation bilaterally and diminished lung sounds OTHER: No adventitious sounds Cardio: COMMON NORMALS: no JVD, regular rhythm, S1 normal heart sound present, S2 normal heart sound present and No murmurs present (Cardio) RHYTHM: regular rhythm HEART SOUNDS: S1 normal heart sound present and S2 normal heart sound present GI: COMMON NORMALS: Normal to inspection, nondistended, normoactive bowel sounds present, Soft to palpation and non-tender PALPATION: Yes Soft to palpation Extremity: COMMON NORMALS: no joint enlargement and no pedal edema GENERAL: Yes edema (trace pitting edema) Neuro: COMMON NORMALS: patient oriented x3 and moves all extremities Skin: COMMON NORMALS: no rashes or lesions noted GENERAL SKIN EXAM: no rashes or lesions noted Urinary Catheter Management^: Arteaga: Cath Placed During This Visit: yes, but has since been removed by the nurse Reason for Continuing Indwelling Catheter: Other Urinary Catheter Date of Insertion: 12/01/19 Urinary Catheter Time of Insertion: 14:37 Date Urinary Catheter Removed: 12/05/19 Time Urinary Catheter Discontinued: 10:00 Discharge Data Data Completed and Pending: Completed Studies During Hospitalization Category Date Time Status CT angio chest PE protcl [id number] Rout ine Cat Scan 12/01/19 16:39 Completed FUSE CUP EXPANDER request for service Routin e Exams 12/04/19 10:13 Completed XR chest 1V [id number] Routine Exams 12/01/19 19:37 Completed XR chest 1V sully ble [id number] Routine Exams 12/02/19 10:57 Completed XR chest 1V sully ble [id number] Stat Exams 12/01/19 12:53 Completed XR chest 1V sully ble [id number] Stat Exams 12/01/19 13:42 [place] [id number] Routin e Ultrasound 12/03/19 16:50 Completed US echo complete [CV echo complete* [id number]] Urgent Ultrasound 12/01/19 13:00 Completed Pending at discharge Category Date Time Status FUSE CUP EXPANDER request for service Routin e Exams 12/06/19 16:34 Taken Labs from last 24 hours 12/07/19 12/07/19 12/07/19 06:16 04:10 04:10 WBC 6.9 RBC 4.62 Hgb 11.0 L Hct 37.2 MCV 80.5 L MCH 23.8 L MCHC 29.6 L RDW 15.8 H Plt Count 184 MPV 11.9 H Neut % (Auto) 55.3 Lymph % (Auto) 23.0 [place] % (Auto) 13.0 Eos % (Auto) 7.4 Baso % (Auto) 1.0 Neut # (Auto) 3.83 Lymph # (Auto) 1.6 [place] # (Auto) 0.9 Eos # (Auto) 0.5 Baso # (Auto) 0.1 Nucleated RBC % (a uto) 0 Nucleated RBCs # 0.0 Sodium 141 Potassium 3.6 Chloride 105 Carbon Dioxide 27 Anion Gap 12.6 BUN 28 H Creatinine 0.9 GFR Calculation Not Reportable Glucose 129 H POC Glucose 129 Calculated Osmolal ity 291 Calcium 8.7 12/06/19 12/06/19 12/06/19 20:02 17:53 11:04 WBC RBC Hgb Hct MCV MCH MCHC RDW Plt Count MPV Neut % (Auto) Lymph % (Auto) [place] % (Auto) Eos % (Auto) Baso % (Auto) Neut # (Auto) Lymph # (Auto) [place] # (Auto) Eos # (Auto) Baso # (Auto) Nucleated RBC % (a uto) Nucleated RBCs # Sodium Potassium Chloride Carbon Dioxide Anion Gap BUN Creatinine GFR Calculation Glucose POC Glucose 251 104 229 Calculated Osmolal ity Calcium Vitals: Last Vital Signs Temp 97.6 F 12/07/19 07:33 Pulse 71 12/07/19 07:33 Resp 20 H 12/07/19 07:33 BP 139/85 12/07/19 07:33 Pulse Ox 97 12/07/19 10:25 Discharge Plan Discharge Patient Disposition: Home Condition: Stable Prescriptions: New amoxicillin-pot clavulanate 875-125 mg Tablet 1 tab PO BID Qty: 1 RF: 0 aspirin 81 mg tablet,chewable 81 mg PO DAILY Qty: 30 RF: 0 metoprolol succinate 25 mg Tablet Extended Release 24 Hr 25 mg PO BID Qty: 60 RF: 0 Continued furosemide 40 mg tablet 40 mg PO BID RF: 0 levothyroxine [Synthroid] 75 mcg tablet 75 mcg PO DAILY RF: 0 metformin 500 mg tablet 500 mg PO BID RF: 0 potassium chloride [Klor-Con M20] 20 mEq tablet,ER particles/crystals 10 meq PO BID RF: 0 cholecalciferol (vitamin D3) 1,000 unit capsule 2,000 unit PO DAILY RF: 0 acetaminophen [Tylenol Extra Strength] 500 mg Tablet 500 mg PO Q6H PRN (Reason: Pain) RF: 0 Hold Instructions: Resume on 08/23/19. Do not take concurrently with the prescribed pain medication. hydrocodone-acetaminophen 5-325 mg tablet 1 - 2 tab PO Q5H PRN (Reason: pain) Qty: 30 RF: 0 Changed simvastatin 20 mg Tablet 20 mg PO BEDTIME Qty: 30 RF: 0 losartan 50 mg tablet 25 mg PO DAILY Qty: 0 RF: 0 Discontinued aspirin [Aspir-Shirin] 325 mg tablet,delayed release (DR/EC) 325 mg PO DAILY RF: 0 carvedilol 3.125 mg tablet 3.125 mg PO BID RF: 0 Discharge Orders: Discharge Order (Routine); Ordered 12/07/19 Ordered By: Brant Levy Referrals: [facility] [Outside] Joanne Terrazas FNP [Nurse Practitioner] - 1 week Hiren Ferreira Jr, MD [Primary Care Provider] - 4-7 days Discharge Diet: Cardiac and Diabetic Discharge Activity: Increase activity as tolerated Activity Restrictions/Additional Instructions: If you experience return of shortness of breath, any chest pain, heart rate racing, any episode of fainting, or other abnormal symptoms, please seek medical attention without delay. Please discuss also with your primary care doctor with regards to nasal bleed, and if this recurs, discussed referral to ENT for additional assessment. Continue to monitor your blood pressure, heart rate at least twice daily at home, record values to bring to your appointment. Continue to work with your primary care doctor with regards to optimization of diabetes control. 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
--- NOTE | 2019-12-07 13:15 | PC.NURSE ---
patient discharged home at this time. IV dc'd cath intact min bleeding noted. Discharge instructions given and explained patient verbalized understanding. patient assisted to wheel chair and accompanied to private vehicle and family. patient alert oreinted and in stable condition.
[2019-12-07 16:41] LABS: Glucose Point of Care 139 mg/dL (70-110)
== END 2019-12-07 13:15 | disposition home or self-care (01) | DRG 208 ==
LOC: ER 12:50 → ICU 15:50 → CSU 12-03 18:41
PROVIDERS: Family Medicine; Internal Medicine Cardiovascular Disease; Admitting Provider Student in an Organized Health Care Education/Training Program; PCP Family Medicine; Visit Provider Internal Medicine
PROC: B2111ZZ Fluoroscopy of Multiple Coronary Arteries using Low Osmolar Contrast (ICD-10-PCS; principal; 2019-12-04 16:00)
DX: J96.01 Acute respiratory failure with hypoxia (principal); I21.4 Non-ST elevation (NSTEMI) myocardial infarction; I50.43 Acute on chronic combined systolic (congestive) and diastolic (congestive) heart failure; I49.01 Ventricular fibrillation; R57.0 Cardiogenic shock; J18.9 Pneumonia, unspecified organism; I42.9 Cardiomyopathy, unspecified; N39.0 Urinary tract infection, site not specified; N17.9 Acute kidney failure, unspecified; E87.2 Acidosis; R65.10 Systemic inflammatory response syndrome (SIRS) of non-infectious origin without acute organ dysfunction; I25.10 Atherosclerotic heart disease of native coronary artery without angina pectoris; Z95.5 Presence of coronary angioplasty implant and graft; E11.9 Type 2 diabetes mellitus without complications; I11.0 Hypertensive heart disease with heart failure; I25.2 Old myocardial infarction; E66.9 Obesity, unspecified; Z68.38 Body mass index [BMI] 38.0-38.9, adult; M19.90 Unspecified osteoarthritis, unspecified site; Z96.659 Presence of unspecified artificial knee joint; I95.9 Hypotension, unspecified; E78.5 Hyperlipidemia, unspecified; Z79.891 Long term (current) use of opiate analgesic; R04.0 Epistaxis; B96.89 Other specified bacterial agents as the cause of diseases classified elsewhere
CPT/HCPCS: 12345; 36415; 36416; 36592; 36600; 51702; 71045; 71275; 80048; 80051; 80053; 80061; 81001; 82550; 82728; 82803; 82805; 82810; 82962; 83036; 83605; 83615; 83735; 83880; 83986; 84145; 84443; 84484; 85025; 85378; 85384; 86140; 86403; 87040; 87070; 87077; 87086; 87186; 87205; 87426; 87449; 87635; 87641; 87804; 93005; 93306; 93454; 93571; 93970; 94002; 94003; 94799; 96372; 96375; 99285; A4570; C1769; C1887; C1894; C9113; J0153; J0282; J0330; J0461; J1265; J1630; J1644; J1650; J1815; J1940; J2250; J2270; J2543; J2704; J2765; J3010; J3475; J3480; J3490; J7030; J7060; Q0163; Q9967

== ENCOUNTER → 2019-12-10 10:40 | Outpatient (BNVA) | payer MEDICARE, BC, SELFPAY | PROVIDERS: PCP Family Medicine; Visit Provider Nurse Practitioner Family | DX: I25.10 Atherosclerotic heart disease of native coronary artery without angina pectoris (principal); I50.20 Unspecified systolic (congestive) heart failure; I25.2 Old myocardial infarction | CPT/HCPCS: 80048 ==

== ENCOUNTER 2020-03-10 12:20 | Outpatient (CLI) | payer MEDICARE, BC, SELFPAY ==
--- NOTE | 2020-03-10 12:45 | USCV_ITS ---
Jose Carreno Age: 74 Gender: F : 1945 Exam Date: 03/10/2020 13:10 Ordering Phys: Joanne Terrazas Technologist: Abby Bui Exam Location: [facility] [place] Indication: SYSTOLIC CHF BP: 126 / 77 HR: 62 Rhythm: Sinus Technical Quality: Technically difficult study MEASUREMENTS (Male / Female) Normal Values 2D ECHO LV Diastolic Diameter PLAX 4.7 cm 4.2 - 5.9 / 3.9 - 5.3 cm LV Systolic Diameter PLAX 3.6 cm LV Chamber Size 3.8 cm IVS Diastolic Thickness 1.0 cm 0.6 - 1.0 / 0.6 - 0.9 cm IVS Systolic Thickness 1.3 cm LVPW Diastolic Thickness 1.6 cm 0.6 - 1.0 / 0.6 - 0.9 cm LVPW Systolic Thickness 1.8 cm RV Chamber Size 3.0 cm LVOT Diameter 2.0 cm LV Ejection Fraction 2D Teich 44.7 % LV Ejection Fraction MOD 2C 49.4 % LV Ejection Fraction 2C AL 53.6 % LA Diameter 4.0 cm LA Width 4.1 cm LA Height 4.9 cm RA Width 3.6 cm RA Height 4.7 cm Aorta at Sinotubular Diameter 2.6 cm M-MODE LV Diastolic Diameter MM 6.2 cm 4.2 - 5.9 / 3.9 - 5.3 cm LV Systolic Diameter MM 4.3 cm LV Ejection Fraction MM Teich 58.0 % IVS Diastolic Thickness MM 0.9 cm 0.6 - 1.0 / 0.6 - 0.9 cm IVS Systolic Thickness MM 1.2 cm LVPW Diastolic Thickness MM 1.2 cm 0.6 - 1.0 / 0.6 - 0.9 cm LVPW Systolic Thickness MM 1.9 cm Aortic Annulus Diameter 3.4 cm LA Ao Ratio MM 1.4 MV E Point Septal Separation 1.8 cm DOPPLER AV Peak Velocity 124.0 cm/s LVOT Peak Velocity 89.0 cm/s AV Area Cont Eq vti 2.7 cm squared AV Area Cont Eq pk 2.3 cm squared MV Area PHT 4.4 cm squared Mitral E to A Ratio 1.6 MV E' Velocity 64.0 cm/s Mitral E to MV E' Ratio 15.3 Mitral E to LV E' Lateral Ratio 18.0 Mitral E to LV E' Septal Ratio 13.4 TR Peak Velocity 173.3 cm/s TR Peak Gradient 12.0 mmHg TV Peak E Velocity 46.0 cm/s Right Atrial Pressure 3.0 mmHg Pulmonary Artery Systolic Pressu 15.0 mmHg PV Peak Velocity 72.0 cm/s RV Acceleration Time 0.1 s RV Ejection Time 0.5 s RV AcT/ET 0.3 FINDINGS Left Ventricle Normal left ventricular cavity size. Moderately decreased left ventricle systolic function. Left ventricular ejection fraction is estimated at 30-35%. Abnormal diastolic function. Right Ventricle Normal right ventricular size and systolic function. Right Atrium Normal right atrial size. Left Atrium Normal left atrial size. Mitral Valve Mildly thickened mitral valve. There is some restriction in movement of posterior mitral valve leaflet. Mild to moderate posteriorly directed mitral valve regurgitation. Aortic Valve Aortic valve not well visualized. No aortic valve stenosis. Trace aortic valve regurgitation. Tricuspid Valve Tricuspid valve not well visualized. Pulmonic Valve Pulmonic valve not well visualized. Pericardium No pericardial effusion. Aorta Normal-sized aortic root. CONCLUSIONS 1. This is a technically difficult study. 2. Normal left ventricular cavity size. Moderately decreased left ventricle systolic function. Left ventricular ejection fraction is estimated at 30-35%. Abnormal diastolic function. 3. There is some restriction in movement of posterior mitral valve leaflet. Mild to moderate posteriorly directed mitral valve regurgitation. 4. When compared to previous echocardiogram dated 12/01/2019, left ventricular systolic function may have improved somewhat. Claudia Hudson MD (Electronically Signed) Final Date: 10 March 2020 18:40 S
== END 2020-03-10 12:21 | disposition home or self-care (01) ==
LOC: RAD 12:25
PROVIDERS: PCP Family Medicine; Visit Provider Nurse Practitioner Family
DX: I50.20 Unspecified systolic (congestive) heart failure (principal)
CPT/HCPCS: 93306

== ENCOUNTER 2020-08-04 11:23 | Outpatient (CLI) | payer MEDICARE, BC, SELFPAY ==
--- NOTE | 2020-08-04 11:32 | MM_ITS ---
WS: [id number] BILATERAL SCREENING DIGITAL MAMMOGRAM WITH CAD HISTORY: SCREENING COMPARISON: 07/13/2012 Bilateral CC and MLO views submitted. Computer aided detection analyzed. Breast composition: There are scattered areas of fibroglandular density. No suspicious masses, microc alcifications or architectural distortion. Stable appearance of each breast. MM/[place] [id number] IMPRESSION: BI-RADS: 2-Benign FOLLOW UP: 1 Year Follow-up
== END 2020-08-04 11:24 | disposition home or self-care (01) ==
LOC: RADSHAW 11:28
PROVIDERS: PCP Nurse Practitioner Family; Visit Provider Nurse Practitioner Family
DX: Z12.31 Encounter for screening mammogram for malignant neoplasm of breast (principal)
CPT/HCPCS: 77067

== ENCOUNTER 2020-08-25 09:07 | Outpatient (CLI) | payer MEDICARE, BC, SELFPAY ==
--- NOTE | 2020-08-25 09:30 | USCV_ITS ---
Jose Carreno Age: 75 Gender: F : 1945 Exam Date: 08/25/2020 09:29 Ordering Phys: Claudia Hudson MD ([email or web address]) Technologist: Exam Location: [facility] [place] Indication: CHEST PAIN BP: 133 / 74 HR: 65 Rhythm: Sinus Technical Quality: Technically difficult study MEASUREMENTS (Male / Female) Normal Values 2D ECHO LV Diastolic Diameter PLAX 3.6 cm 4.2 - 5.9 / 3.9 - 5.3 cm LV Systolic Diameter PLAX 3.0 cm IVS Diastolic Thickness 1.0 cm 0.6 - 1.0 / 0.6 - 0.9 cm IVS Systolic Thickness 1.7 cm LVPW Diastolic Thickness 1.2 cm 0.6 - 1.0 / 0.6 - 0.9 cm LVPW Systolic Thickness 2.1 cm LVOT Diameter 2.6 cm LV Ejection Fraction 2D Teich 13.6 % LV Ejection Fraction MOD 2C 59.3 % LV Ejection Fraction 2C AL 59.7 % LA Diameter 4.8 cm LA Width 3.1 cm LA Height 5.3 cm RA Width 3.0 cm RA Height 4.9 cm Aorta at Sinotubular Diameter 2.7 cm M-MODE LV Diastolic Diameter MM 7.3 cm 4.2 - 5.9 / 3.9 - 5.3 cm LV Systolic Diameter MM 5.3 cm LV Ejection Fraction MM Teich 53.1 % IVS Diastolic Thickness MM 1.3 cm 0.6 - 1.0 / 0.6 - 0.9 cm IVS Systolic Thickness MM 1.9 cm LVPW Diastolic Thickness MM 1.3 cm 0.6 - 1.0 / 0.6 - 0.9 cm LVPW Systolic Thickness MM 2.1 cm RV Diastolic Diameter MM 1.1 cm Aortic Annulus Diameter 3.9 cm LA Ao Ratio MM 1.4 MV E Point Septal Separation 1.9 cm DOPPLER AV Peak Velocity 129.0 cm/s LVOT Peak Velocity 90.0 cm/s AV Area Cont Eq vti 4.2 cm squared AV Area Cont Eq pk 3.7 cm squared MV Area PHT 5.0 cm squared Mitral E to A Ratio 0.8 MV E' Velocity 40.5 cm/s Mitral E to MV E' Ratio 16.9 Mitral E to LV E' Lateral Ratio 14.6 Mitral E to LV E' Septal Ratio 20.6 TR Peak Velocity 127.0 cm/s TR Peak Gradient 6.5 mmHg TV Peak E Velocity 78.0 cm/s Right Atrial Pressure 3.0 mmHg Pulmonary Artery Systolic Pressu 9.5 mmHg FINDINGS Left Ventricle Normal left ventricular cavity size. Probably moderately decreased left ventricle systolic function. Left ventricular ejection fraction roughly estimated at about 40%. This study is inadequate for estimation of regional wall motion abnormality. Grade II diastolic dysfunction, moderately elevated filling pressures. Right Ventricle Normal right ventricular size and systolic function. Right Atrium Normal right atrial size. Left Atrium Normal left atrial size. Mitral Valve Thickened mitral valve. No mitral valve stenosis. Trace-mild mitral valve regurgitation. Aortic Valve Aortic valve not well visualized. No aortic valve stenosis. No aortic valve regurgitation. Tricuspid Valve Tricuspid valve not well visualized. Pulmonic Valve Pulmonic valve not well visualized. Pericardium No pericardial effusion. Aorta Aorta not well visualized. CONCLUSIONS 1. This is a technically difficult study. 2. Normal left ventricular cavity size. Probably moderately decreased left ventricle systolic function. Left ventricular ejection fraction roughly estimated at about 40%. This study is inadequate for estimation of regional wall motion abnormality. Grade II diastolic dysfunction, moderately elevated filling pressures. 3. Trace-mild mitral valve regurgitation. 4. Repeat study with ultrasound enhancing agent is recommended. Claudia Hudson MD (Electronically Signed) Final Date: 27 Aug 2020 16:15 S
== END 2020-08-25 09:08 | disposition home or self-care (01) ==
LOC: US 09:10
PROVIDERS: PCP Nurse Practitioner Family; Visit Provider Internal Medicine Cardiovascular Disease
DX: I50.22 Chronic systolic (congestive) heart failure (principal); R07.9 Chest pain, unspecified; I34.0 Nonrheumatic mitral (valve) insufficiency
CPT/HCPCS: 93306

== ENCOUNTER 2020-08-29 13:51 | Outpatient (CLI) | payer MEDICARE, BC, SELFPAY ==
--- NOTE | 2020-08-29 14:01 | USCV_ITS ---
Wai Jose Age: 75 Gender: F : 1945 Exam Date: 08/29/2020 14:11 Ordering Phys: Claudia Hudson MD ([email or web address]) Technologist: Leno Lawrence Exam Location: [facility] [place] Indication: EVALUATE LV FUNCTION BP: 128 / 73 HR: 67 Rhythm: Sinus Technical Quality: Fair MEASUREMENTS (Male / Female) Normal Values 2D ECHO LV Ejection Fraction MOD 2C 39.1 % LV Ejection Fraction 2C AL 40.2 % FINDINGS Left Ventricle Right Ventricle Right Atrium Left Atrium Mitral Valve Aortic Valve Tricuspid Valve Pulmonic Valve Pericardium Aorta CONCLUSIONS 1. This is a limited echocardiogram with ultrasound enhancing agent. 2. Normal left ventricular size. Moderately decreased left ventricular function. Left ventricular ejection fraction estimated at 35%. There is global hypokinesis with moderate hypokinesis of basal to mid anteroseptal, basal to apical anterior, apical septal and apical hagan. 3.When compared to echocardigram dated 03/10/2020, left ventricular systolic function may have improved somewhat. Claudia Hudson MD (Electronically Signed) Final Date: 31 Aug 2020 13:11 S
== END 2020-08-29 13:52 | disposition home or self-care (01) ==
LOC: RAD 13:59
PROVIDERS: PCP Nurse Practitioner Family; Visit Provider Nurse Practitioner Family
DX: I50.9 Heart failure, unspecified (principal)
CPT/HCPCS: C8924

== ENCOUNTER → 2021-04-28 09:10 | Outpatient (BNVA) | payer MEDICARE, BC, SELFPAY | PROVIDERS: PCP Nurse Practitioner Family; Visit Provider Internal Medicine Cardiovascular Disease | DX: R06.00 Dyspnea, unspecified (principal); I10 Essential (primary) hypertension; I25.10 Atherosclerotic heart disease of native coronary artery without angina pectoris; I50.22 Chronic systolic (congestive) heart failure | CPT/HCPCS: 80048; 83735; 83880 ==

== ENCOUNTER 2021-06-22 09:19 | Outpatient (CLI) | payer MEDICARE, BC, SELFPAY ==
--- NOTE | 2021-06-22 | XRR_ITS ---
PROCEDURE INFORMATION: Exam: XR Chest Exam date and time: 06/22/2021 9:33 AM Age: 76 years old Clinical indication: Shortness of breath; Additional info: SOB TECHNIQUE: Imaging protocol: XR of the chest. Views: 2 views. COMPARISON: CR XR chest 1V portable [id number] 12/02/2019 11:48 AM FINDINGS: Lungs: Unremarkable. No consolidation. Pleural spaces: Unremarkable. No pleural effusion. No pneumothorax. Heart/Mediastinum: Unremarkable. No cardiomegaly. Bones/joints: Unremarkable. XR/XR chest 2V* [id number] IMPRESSION: No acute findings.
== END 2021-06-22 09:20 | disposition home or self-care (01) ==
LOC: RAD 09:25
PROVIDERS: PCP Nurse Practitioner Family; Visit Provider Nurse Practitioner Family
DX: R06.02 Shortness of breath (principal)
CPT/HCPCS: 71046

== ENCOUNTER 2021-07-02 07:01 | Outpatient (CLI) | payer MEDICARE, BC, SELFPAY ==
--- NOTE | 2021-07-02 07:23 | ECG_ITS ---
[facility] Test Date: 2021-07-02 Pat Name: Jose Carreno Department: Room: Gender: Female Heel Breaster: Margaux Rod : 1945 Requested By: Claudia Hudson Order Number: [id number] Liliana MD: Claudia Hudson M.D. Interpretive Statements NAME OF STUDY: LEXISCAN SESTAMIBI STRESS TEST INDICATION: Chest Pain PROCEDURE: At the baseline, the blood pressure was 105/47 mm Hg with a heart rate of 62 bpm. The electrocardiogram showed sinus rhythm, normal axis.Low QRS voltage in precordial leads. ??? The Lexiscan was infused over a period of 20 seconds. A total of 0.4 milligrams of Lexiscan was infused. The stress phase was continued for a total of 5 minutes. Heart rate at the end of the stress phase was 80 bpm with a blood pressure of 111/50 bpm. The EKG at the peak infusion revealed sinus rhythm with no significant ST-T wave changes. ??? Sestamibi was injected 20 seconds after the Lexiscan infusion. ??? Blood pressure at the end of the recovery phase was 110/51 mm Hg with a heart rate of 91 beats per minute. ??? CONCLUSION: 1. No significant EKG changes with the] LexiScan infusion. 2. No LexiScan induced chest pain or cardiac arrhythmia. 3. Normal blood pressure and heart rate response. 4. Sestamibi/sestamibi perfusion scan pending; see separate report. Electronically Signed On 07-08-2021 8:28:58 CDT by Claudia Hudson M.D. [email or web address]
[2021-07-02 07:24] VITALS: BMI 45.1
--- NOTE | 2021-07-02 07:24 | NMCV_ITS ---
NM jami perf SPECT r/s* [id number] Jose Carreno Age: 76 Gender: F : 1945 Exam Date: 07/02/2021 08:25 Ordering Phys: Claudia Hudson MD ([email or web address]) Technologist: ETKA Pereira Exam Location: [facility] Indications: ATHEROSCLEROTIC HEART DISEASE STRESS TEST Please see separate stress test report in [facility] for full findings IMAGE PROTOCOL Rest/Stress 1 Lexiscan Day Radiopharmaceutical Dose (mCi) Administration Site Administered by Rest: Tc-99m 11.0 IV EKTA Pereira Sestamibi Stress:Tc-99m 33.0 IV EKTA Chavez Sestamibi Rest: 02-Jul-2021 60 Discovery 630 Stress: 02-Jul-2021 30 Discovery 630 0.4mg Lexiscan. Images obtained in supine and prone position. SPECT RESULTS Technical Quality: Excellent Raw Data Analysis: Normal, Breast attenuation Image Corrections: No attenuation or motion correction applied Summed Stress Score: 21 Summed Rest Score: 22 Summed Difference Score: 2 PERFUSION FINDINGS Large sized perfusion abnormality of basal to mid inferior, basal to mid inferolateral, basal to mid anterolateral, apical lateral, apical septal and apical hagan on rest images with subtle reversibility in apical anterior and mid inferior hagan. FUNCTIONAL RESULTS (calculated via Gated SPECT) Stress Image LV EF (%): 48 Stress EDV (mL):116 TID: 0.93 Stress ESV (mL):60 FUNCTIONAL FINDINGS: The left ventricle is normal in size. Transient Ischemia Dilatation of 0.93. The left ventricular ejection fraction is mildly reduced with a value of 48%. There is mild hypokinesis of basal to mid inferior, mid to apical lateral and apical septal haagn. IMPRESSIONS 1. Large sized perfusion abnormality of basal to mid inferior, basal to mid inferolateral, basal to mid anterolateral, apical lateral, apical septal and apical hagan on rest images with subtle reversibility in apical anterior and mid inferior hagan. 2. 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 3. The left ventricular ejection fraction is mildly reduced with a value of 48%. 4. There is mild hypokinesis of basal to mid inferior, mid to apical lateral and apical septal hagan. 5. EKG portion of the study will be reported separately. 6. No prior similar studies to compare. Claudia Hudson MD (Electronically Signed) Final Date: 09 July 2021 19:06 S
[2021-07-02 09:00] VITALS: BP 120/48; PULSE 85
[2021-07-02] MEDS: regadenoson 0.4 Mg/5 ml Syringe IVP (09:00)
== END 2021-07-02 07:02 | disposition home or self-care (01) ==
PROVIDERS: PCP Nurse Practitioner Family; Visit Provider Internal Medicine Cardiovascular Disease
DX: R07.9 Chest pain, unspecified (principal); I25.10 Atherosclerotic heart disease of native coronary artery without angina pectoris; R06.00 Dyspnea, unspecified
CPT/HCPCS: 78452; 93017; A9500; J2785

== ENCOUNTER → 2022-07-07 15:34 | Outpatient (BNVA) | payer MEDICARE, SELFPAY | PROVIDERS: PCP Nurse Practitioner Family; Visit Provider Nurse Practitioner Family | DX: I25.10 Atherosclerotic heart disease of native coronary artery without angina pectoris (principal); I11.0 Hypertensive heart disease with heart failure; I50.22 Chronic systolic (congestive) heart failure; I25.2 Old myocardial infarction; Z79.82 Long term (current) use of aspirin | CPT/HCPCS: 99214 ==

== ENCOUNTER → 2022-11-19 08:38 | Outpatient (BNVA) | payer MEDICARE, SELFPAY | PROVIDERS: PCP Nurse Practitioner Family; Visit Provider Podiatrist Foot & Ankle Surgery | DX: E11.9 Type 2 diabetes mellitus without complications (principal); M21.612 Bunion of left foot; M21.611 Bunion of right foot; L84 Corns and callosities; B35.1 Tinea unguium; M20.41 Other hammer toe(s) (acquired), right foot; M20.42 Other hammer toe(s) (acquired), left foot | CPT/HCPCS: 11055; 99204 ==

== ENCOUNTER → 2023-04-06 14:12 | Outpatient (BNVA) | payer MEDICARE, SELFPAY | PROVIDERS: PCP Nurse Practitioner Family; Visit Provider Internal Medicine Cardiovascular Disease | DX: I25.10 Atherosclerotic heart disease of native coronary artery without angina pectoris (principal); I11.0 Hypertensive heart disease with heart failure; I50.22 Chronic systolic (congestive) heart failure | CPT/HCPCS: 99214 ==

== ENCOUNTER → 2023-05-20 08:37 | Outpatient (BNVA) | payer MEDICARE, SELFPAY | PROVIDERS: PCP Nurse Practitioner Family; Visit Provider Podiatrist Foot & Ankle Surgery | DX: M21.612 Bunion of left foot; M21.611 Bunion of right foot; L84 Corns and callosities; B35.1 Tinea unguium; M20.41 Other hammer toe(s) (acquired), right foot; M20.42 Other hammer toe(s) (acquired), left foot; E11.69 Type 2 diabetes mellitus with other specified complication | CPT/HCPCS: 11055; 99213 ==

== ENCOUNTER → 2023-11-25 09:15 | Outpatient (BNVA) | payer MEDICARE, SELFPAY | PROVIDERS: PCP Nurse Practitioner Family; Visit Provider Podiatrist Foot & Ankle Surgery | DX: M21.612 Bunion of left foot; M21.611 Bunion of right foot; L84 Corns and callosities; B35.1 Tinea unguium; M20.41 Other hammer toe(s) (acquired), right foot; M20.42 Other hammer toe(s) (acquired), left foot; E11.69 Type 2 diabetes mellitus with other specified complication | CPT/HCPCS: 99213 ==

== ENCOUNTER → 2024-01-05 15:00 | Outpatient (BNVA) | payer MEDICARE, SELFPAY | PROVIDERS: PCP Nurse Practitioner Family; Visit Provider Internal Medicine | DX: I25.10 Atherosclerotic heart disease of native coronary artery without angina pectoris (principal); I11.0 Hypertensive heart disease with heart failure; I50.22 Chronic systolic (congestive) heart failure; E78.00 Pure hypercholesterolemia, unspecified; E11.9 Type 2 diabetes mellitus without complications; E66.9 Obesity, unspecified; Z68.41 Body mass index [BMI] 40.0-44.9, adult; Z79.84 Long term (current) use of oral hypoglycemic drugs | CPT/HCPCS: 99214 ==

== ENCOUNTER → 2024-06-14 09:06 | Outpatient (BNVA) | payer MEDICARE, SELFPAY | PROVIDERS: PCP Nurse Practitioner Family; Visit Provider Podiatrist Foot & Ankle Surgery | DX: E11.69 Type 2 diabetes mellitus with other specified complication (principal); B35.1 Tinea unguium; M79.672 Pain in left foot; M21.612 Bunion of left foot; M21.611 Bunion of right foot; L84 Corns and callosities; M20.41 Other hammer toe(s) (acquired), right foot; M20.42 Other hammer toe(s) (acquired), left foot | CPT/HCPCS: 11055; 11721 ==

== ENCOUNTER → 2024-07-11 14:44 | Outpatient (BNVA) | payer MEDICARE, SELFPAY | PROVIDERS: PCP Nurse Practitioner Family; Visit Provider Internal Medicine | DX: I25.10 Atherosclerotic heart disease of native coronary artery without angina pectoris (principal); I50.22 Chronic systolic (congestive) heart failure; I10 Essential (primary) hypertension; E78.00 Pure hypercholesterolemia, unspecified; E11.9 Type 2 diabetes mellitus without complications; E66.9 Obesity, unspecified | CPT/HCPCS: 99214 ==

== ENCOUNTER → 2024-11-08 09:05 | Outpatient (BNVA) | payer MEDICARE, SELFPAY | PROVIDERS: PCP Nurse Practitioner Family; Visit Provider Nurse Practitioner Family | DX: L81.4 Other melanin hyperpigmentation (principal); D18.01 Hemangioma of skin and subcutaneous tissue; L57.8 Other skin changes due to chronic exposure to nonionizing radiation; L82.0 Inflamed seborrheic keratosis; L29.89 Other pruritus; R20.9 Unspecified disturbances of skin sensation; R20.8 Other disturbances of skin sensation; L53.8 Other specified erythematous conditions; D48.5 Neoplasm of uncertain behavior of skin; L57.0 Actinic keratosis | CPT/HCPCS: 11102; 17000; 17110; 99203 ==

== ENCOUNTER → 2024-12-13 08:59 | Outpatient (BNVA) | payer MEDICARE, SELFPAY | PROVIDERS: PCP Nurse Practitioner Family; Visit Provider Podiatrist Foot & Ankle Surgery | DX: E11.69 Type 2 diabetes mellitus with other specified complication (principal); B35.1 Tinea unguium; M79.672 Pain in left foot; M21.612 Bunion of left foot; M21.611 Bunion of right foot; L84 Corns and callosities; M20.41 Other hammer toe(s) (acquired), right foot; M20.42 Other hammer toe(s) (acquired), left foot; Z79.4 Long term (current) use of insulin | CPT/HCPCS: 11721; 99212 ==

== ENCOUNTER → 2025-01-16 14:52 | Outpatient (BNVA) | payer MEDICARE, SELFPAY | PROVIDERS: PCP Nurse Practitioner Family; Visit Provider Internal Medicine | DX: I25.10 Atherosclerotic heart disease of native coronary artery without angina pectoris (principal); I11.0 Hypertensive heart disease with heart failure; I50.22 Chronic systolic (congestive) heart failure; E78.00 Pure hypercholesterolemia, unspecified; E11.9 Type 2 diabetes mellitus without complications; I25.2 Old myocardial infarction; Z79.4 Long term (current) use of insulin; Z79.85 Long-term (current) use of injectable non-insulin antidiabetic drugs | CPT/HCPCS: 99214 ==